=== PATIENT | female | born 1945 | race Caucasian/White ===

== ENCOUNTER 2021-04-20 03:54 | Emergency (ER) | payer MEDICARE, SELFPAY ==
--- NOTE | ~2021-04-20 | CT_ITS ---
EXAMINATION: CT abdomen pelvis wo con DATE: 04/20/2021 06:34 INDICATION: Left flank pain. TECHNIQUE: Computed tomography (CT) of the abdomen and pelvis was performed without intravenous contr ast. Automated exposure control and iterative reconstruction technique were employed. The dose-length product was 645.69 mGy-cm. COMPARISON: None. FINDINGS: The visualized portions of the lung bases demonstrate mild atelectasis and mild chronic mauricio g disease. No pleural effusion. The heart size is normal. No pericardial effusion. There is diffuse h epatic steatosis. The gallbladder, spleen, pancreas, adrenal glands, and left kidney are normal. Ther e is a 2 mm stone in right kidney. There are no dilated loops of bowel. The appendix is not visualize d. There is a small sliding hiatal hernia. There are no pathologically enlarged lymph nodes. There is no free intraperitoneal fluid. There is lumbar dextroscoliosis and severe spondylosis. IMPRESSION: 1. Small sliding hiatal hernia. 2. Diffuse hepatic steatosis. 3. 2 mm nonobstructing right kidney stone. Reviewed, dictated and finalized at location A.
[2021-04-20 04:03] VITALS: BP 141/72; PULSE 74; RESP 16; TEMP 36.8; O2SAT 94
[2021-04-20 06:00] LABS: Basophils Absolute Auto 0.1 K/mm3 (0.0-0.1); Basophils Percent Auto 0.7 % (0.2-1.2); Eosinophils Absolute Auto 0.3 K/mm3 (0-0.3); Eosinophils Percent Auto 3.6 % (0-4.4); Hemoglobin 12.8 g/dL (12.0-15.0); Immature Granulocyte Absolute 0.03 K/mm3 (0.00-0.031); Immature Granulocyte Percent A 0.4 % (0-0.5); Lymphocytes Absolute Auto 1.71 K/mm3 (0.9-3.2); Lymphocytes Percent Auto 21.3 % (18.3-44.2); Mean Corpuscular Hemoglobin 31.8 pg (26-34); Mean Corpuscular Volume 99.5 fl (80-100); Mean Platelet Volume 10.3 fl (7.4-10.4); Monocytes Absolute Auto 0.7 K/mm3 (0.1-0.6); Monocytes Percent Auto 9.2 % (2.6-8.5); Neutrophils Absolute Auto 5.2 K/mm3 (1.3-6.7); Neutrophils Percent Auto 64.8 % (45.5-73.1); Platelet Count Result 267 k/mm3 (150-375); Red Blood Count 4.02 M/mm3 (4.2-5.4); Red Cell Distribution Width 12.3 % (11.5-14.5)
[2021-04-20 06:05] VITALS: BP 142/67; PULSE 66; RESP 16; O2SAT 97
[2021-04-20 06:07] LABS: Alanine Aminotransferase 8 U/L (4-35); Albumin Level 3.9 g/dL (3.5-5.1); Alkaline Phosphatase 93 U/L (38-126); Anion Gap 8 mmol/L (8-16); Aspartate Amino Transferase 25 U/L (14-36); Blood Urea Nitrogen 19 mg/dL (7-17); Carbon Dioxide 26 mmol/L (22-30); Chloride 104 mmol/L (98-107); Estimated CRCL calculation 46 ml/min; Estimated Glomerular Filt Rate > 60; Glucose 95 mg/dL (65-105); Potassium 3.8 mmol/L (3.4-5.0); Sodium 138 mmol/L (137-145)
--- NOTE | 2021-04-20 06:30 | ED.GENADULT ---
HPI - General Adult General Chief complaint: Unspecified Stated complaint: left side pain Time Seen by Provider: 04/20/21 04:13 Source: patient and RN notes reviewed Mode of arrival: ambulatory Limitations: no limitations History of Present Illness HPI narrative: This is a 76 year old female with history of Parkinsons's who presents for evaluation left flank pain. She states starting yesterday she has been having intermittent left flank pain. This pain comes randomly. She thinks her pain feels better sitting up. She applied biofreeze , and this helped her pain. She denies associated nausea, vomiting, abdominal pain, urinary symptoms or fever. Her pain does not radiate. Related Data Home Medications Medication Instructions Recorded Confirmed aspirin 81 mg tablet,delayed 81 mg PO DAILY 10/16/19 11/08/20 release calcium carbonate 600 mg calcium 600 mg PO DAILY 10/16/19 11/08/20 (1,500 mg) tablet carbidopa 25 mg-levodopa 100 mg 1 tablet PO QID 10/16/19 11/08/20 tablet cholecalciferol (vitamin D3) 25 25 mcg PO DAILY 10/16/19 11/08/20 mcg (1,000 unit) capsule escitalopram oxalate 10 mg tablet 10 mg PO DAILY 10/16/19 11/08/20 melatonin 5 mg capsule mg PO .hs cap 10/16/19 11/08/20 multivitamin 1 tablet PO DAILY 10/16/19 11/08/20 anastrozole mg 04/20/21 bupropion HCl mg PO 04/20/21 Allergies Allergy/AdvReac Type Severity Reaction Status Date / Time celecoxib Allergy Mild Itching Verified 04/20/21 04:18 citalopram Allergy Mild Rash Verified 04/20/21 04:18 sertraline Allergy Mild made Verified 04/20/21 04:18 tremors worse primidone AdvReac Severe severe Verified 04/20/21 04:18 dizzy, gait unsteadiness Review of Systems Review of Systems: All systems reviewed & are unremarkable except as noted in HPI and below PMFSH Past Medical History Medical History (Updated 04/20/21 @ 06:55 by Aisha Delong MD) Hx of breast cancer Parkinson's Disease Thyroid nodule Family History Family History Sibling Family history of lung cancer, Onset Age: 61 Patient's sister is Patient's sister is in good health Family history of malignant neoplasm of ovary Mother Family history of lymphoma, Onset Age: 91 Father Patient's father is Social History Social History Smoking status: Never smoker Second hand tobacco smoke exposure: No Alcohol intake: never Substance use: never Gender identity (if verbalized by the patient): Female Sexual Orientation (if Verbalized by the Patient): Straight or Heterosexual Exam Narrative: Exam Narrative: GENERAL: Well-appearing, well-nourished, and in no acute distress. HEAD: Normocephalic, atraumatic EYES: EOMI, conjunctiva clear without discharge THROAT:Mucous membranes moist, Oropharynx normal without erythema, exudate, peritonsillar swelling or fluctuance NECK: Supple RESPIRATORY: No respiratory distress, Airway patent, Respirations non-labored, Clear to auscultation without rales, rhonchi or wheeze HEART: Regular rate and rhythm. No murmur heard. Normal peripheral pulses. ABDOMEN: Soft, nontender, nondistended, normal active bowel sounds. No masses. No rebound or guarding, No organomegaly. EXTREMITIES: No edema, normal strength with full range of motion. SKIN: right lower medial anterior leg with area with light pink , no induration, tenderness or fluctuance NEURO: Alert and oriented x3. CN 2-12 grossly intact. No focal deficits. PSYCH: Normal mood and affect. Course Reevaluation(s) Reevaluation #1: I Reviewed with patient labs and CT did not show any acute finding . This may be muscle spasm. I have discussed discharge plan and patient feels comfortable. She reports her pain feels better. Date: 04/20/21 Time: 06:53 Vital Signs Vital signs: Vital Signs Temperat
[2021-04-20 06:41] LABS: Add Urine Microscopic? YES; Appearance Urine Cloudy (Clear); Bacteria Urine Trace /hpf; Bilirubin Urine Negative (Negative); Blood Urine Negative (Negative); Color Urine Amber (Yellow); Glucose Urine UA Negative (Negative); Ketones Urine Trace mg/dL (Negative); Leukocyte Esterase Ur Negative LEU/UL (Negative); Mucus Urine Moderate /lpf; Nitrate Urine Negative (Negative); Protein Urine Negative (Negative); RBC Urine 0-2 /hpf (0-2); Specific Grav Ur 1.024 (1.001-1.035); Squamous Epithelial Cell Urine Many /hpf (Few)
[2021-04-20 06:55] VITALS: BP 148/78; PULSE 70; RESP 16; O2SAT 97
== END 2021-04-20 07:22 | disposition home or self-care (01) ==
PROVIDERS: Emergency Provider General Practice; PCP Internal Medicine
DX: R10.9 Unspecified abdominal pain (principal); G20 Parkinson's disease; Z79.82 Long term (current) use of aspirin; Z85.3 Personal history of malignant neoplasm of breast; K44.9 Diaphragmatic hernia without obstruction or gangrene; K76.0 Fatty (change of) liver, not elsewhere classified; N20.0 Calculus of kidney
CPT/HCPCS: 36415; 74176; 80053; 81001; 85025; 96365; 99284; J0131

== ENCOUNTER 2021-06-03 14:47 | Outpatient (CLI) | payer MEDICARE, SELFPAY ==
--- NOTE | ~2021-06-03 | US_ITS ---
EXAMINATION: US thyroid DATE: 06/03/2021 15:23 INDICATION: Nontoxic single thyroid nodule. TECHNIQUE: Multiple ultrasound images of the thyroid were obtained. COMPARISON: Ultrasound 09/09/2009 FINDINGS: The right thyroid lobe measures 3.6 x 1.8 x 1.7 cm. The left thyroid lobe measures 4.1 x 1.5 x 1.4 c m. In the right thyroid lobe, there is a 12 mm predominantly solid, hypoechoic, [id number]-[id number] nodu le with smooth margin without echogenic foci (TI-RADS TR4). In the left thyroid lobe, there is a 15 m m predominantly solid, hypoechoic, ryjre-qegw-gkmc nodule with ill-defined margin without echogenic f oci (TR4). There are multiple subcentimeter nodules in the thyroid. IMPRESSION: 1. Thyroid nodules, stable from 09/09/2009, likely not clinically significant. No follow-up is needed. Reviewed, dictated and finalized at location A. IMPRESSION: 1. Thyroid nodules, stable from 09/09/2009, likely not clinically significant. N o follow-up is needed.
== END 2021-06-03 14:48 | disposition home or self-care (01) ==
LOC: ANHIMG 14:54
PROVIDERS: PCP Internal Medicine; Visit Provider Internal Medicine
DX: E04.2 Nontoxic multinodular goiter (principal)
CPT/HCPCS: 76536

== ENCOUNTER 2021-07-06 08:38 | Emergency (ER) | payer MEDICARE, SELFPAY ==
[2021-07-06] VITALS (14 sets, daily range): BP systolic 108–120; BP diastolic 54–101; PULSE 74; RESP 8–32; TEMP 37; O2SAT 94–99
--- NOTE | ~2021-07-06 | XR_ITS ---
EXAMINATION: XR shoulder RT min 2V DATE: 07/06/2021 09:21 INDICATION: Right shoulder pain post fall TECHNIQUE: AP internally and externally rotated, AP oblique externally rotated and transscapular Y vi ews of the right shoulder were obtained. COMPARISON: None FINDINGS: Normal alignment. No fracture.Right glenohumeral osteoarthritis with moderate inferior predominant n onuniform joint space narrowing and with small marginal osteophytes. Mild right acromioclavicular ost eoarthritis. Moderate cervicothoracic spondylosis. Likely deep brain stimulators projecting over the left and right mid chest with leads extending cephalad to the visualized base of the left and right n lilia. Visualized portions of the lungs are clear. IMPRESSION: Moderate right glenohumeral and mild acromioclavicular osteoarthritis. No acute osseous abnormality. Reviewed, dictated and finalized at location A.
--- NOTE | ~2021-07-06 | XR_ITS ---
EXAMINATION: XR elbow RT min 3V DATE: 07/06/2021 09:21 INDICATION: Right elbow pain post fall TECHNIQUE: Anteroposterior, two oblique and lateral views of the right elbow were obtained. COMPARISON: None. FINDINGS: Alignment is normal. No fracture or joint effusion. Moderate osteoarthritis at the right elbow with r adiocapitellar predominance. Soft tissues are unremarkable. IMPRESSION: 1. Moderate right elbow osteoarthritis. No joint effusion or acute osseous abnormality. Reviewed, dictated and finalized at location A. IMPRESSION: 1. Moderate right elbow osteoarthritis. No joint effusion or acute osseous abno rmality.
--- NOTE | ~2021-07-06 | XR_ITS ---
EXAMINATION: XR knee RT min 4V DATE: 07/06/2021 09:21 INDICATION: Right knee pain post fall TECHNIQUE: Anteroposterior, 2 oblique and crosstable lateral views of the right knee were obtained COMPARISON: 02/26/2013 FINDINGS: Again seen is a right total knee arthroplasty with patellar resurfacing which appears to remain well seated in near-anatomic alignment. No periprosthetic lucency to suggest loosening. No fracture. Soft tissues are unremarkable. No right knee joint effusion. IMPRESSION: 1. No acute abnormality at a right total knee arthroplasty. Reviewed, dictated and finalized at location A.
--- NOTE | ~2021-07-06 | CT_ITS ---
EXAMINATION: CT brain wo con, CT cervical spine wo con EXAM DATE: 07/06/2021 09:24 INDICATION: Fall, hit head. Right temporal pain. TECHNIQUE: Spiral CT of the head was performed without contrast. Axial, coronal and sagittal images were reviewed. Spiral CT of the cervical spine was performed without contrast. Axial images were rev iewed. Coronal and sagittal reformatted images were also reviewed. The dose-length product (DLP) fo r this examination was 224.20 (accession [id number]), 605.33 (accession [id number]) mGy-cm. The exposure was tailored according to patient size, and iterative reconstruction (ASIR) was used as additional dose reduction technique. There is no prior study for comparison. FINDINGS: HEAD CT: There is been interval insertion of bilateral deep brain stimulator implants. There is no ac wilman intraparenchymal hemorrhage. No evidence of intraparenchymal brain mass lesion. No evidence of acute infarction. Please note that initial head CT has limited sensitivity for small or acute infarc tions. There is mild periventricular and subcortical hypodensity, nonspecific but probably related to small vessel ischemic disease. There is mild prominence of the sulci and ventricles related to cer ebral atrophy. There is intracranial carotid arteriosclerosis. There are no extra-axial collection s. There is no mass effect or midline shift. The orbits are unremarkable. Small to moderate-sized right frontal scalp contusion. The visualized sinuses and mastoid air cells are well aerated. CERVICAL CT: There is advanced left-sided cervical facet arthropathy and moderate disc disease at C5- 6. There is 2-3 mm degenerative anterolisthesis C4 on C5. There is no evidence of acute cervical frac ture. The odontoid process is intact. Pre-dens space is normal. Prevertebral soft tissue is normal . There are no soft tissue abnormalities identified. There is no disc space widening or traumatic v ertebral body subluxation suspected. A detailed level by level evaluation of spondylosis can be ad ded as addendum if requested. IMPRESSION: 1. No acute intracranial findings or cervical fracture. 2. Right frontal scalp contusion. 3. Age-related intracranial findings. 4. Cervical spondylosis. Reviewed, dictated and finalized at location A. IMPRESSION: 1. No acute intracranial findings or cervical fracture. 2. Right frontal scalp contusion. 3. Age-related intracranial findings. 4. Cervical spondylosis.
--- NOTE | 2021-07-06 08:58 | ED.FALL ---
HPI - Fall General Chief Complaint: Fall <DO Gisela Blanchard Last Filed: 07/06/21 11:31> Stated Complaint: Fall <Roberto Mejias DO - Last Filed: 07/06/21 11:31> Time Seen by Provider: 07/06/21 08:48 <Roberto Mejias DO - Last Filed: 07/06/21 11:31> Source: RN notes reviewed <Roberto Mejias DO - Last Filed: 07/06/21 11:31> History of Present Illness HPI Narrative: Patient presents emergency department from home for a fall. Patient states she was trying to carry a crockpot when she tripped and fell she states that she landed on her right side and notes pain and swelling to her right forehead as well as pain to her right shoulder her right elbow and her right knee. Patient does note small cut to her right elbow she denies any loss of consciousness she denies any vision changes, chest pain shortness of breath or any other symptoms <Roberto Mejias DO - Last Filed: 07/06/21 11:31> Related Data Home Medications: Home Medications Medication Instructions Recorded Confirmed aspirin 81 mg tablet,delayed 81 mg PO DAILY 10/16/19 05/18/21 release calcium carbonate 600 mg calcium 600 mg PO DAILY 10/16/19 05/18/21 (1,500 mg) tablet carbidopa 25 mg-levodopa 100 mg 1 tablet PO QID 10/16/19 05/18/21 tablet cholecalciferol (vitamin D3) 25 25 mcg PO DAILY 10/16/19 05/18/21 mcg (1,000 unit) capsule escitalopram oxalate 10 mg tablet 10 mg PO DAILY 10/16/19 05/18/21 melatonin 5 mg capsule mg PO .hs cap 10/16/19 05/18/21 multivitamin 1 tablet PO DAILY 10/16/19 05/18/21 anastrozole mg 04/20/21 bupropion HCl mg PO 04/20/21 05/18/21 <Roberto Mejias DO - Last Filed: 07/06/21 11:31> Allergies/Adverse Reactions: Allergies Allergy/AdvReac Type Severity Reaction Status Date / Time celecoxib Allergy Mild Itching Verified 05/16/21 10:21 citalopram Allergy Mild Rash Verified 05/16/21 10:21 sertraline Allergy Mild made Verified 05/16/21 10:21 tremors worse primidone AdvReac Severe severe Verified 05/16/21 10:21 dizzy, gait unsteadiness <Roberto Mejias DO - Last Filed: 07/06/21 11:31> Review of Systems Review of Systems: Gen.: Denies fevers or chills Eyes: Denies eye pain or visual change ENT: Denies congestion Respiratory: Denies shortness of breath or cough CV: Denies chest pain or palpitations GI: Denies abdominal pain nausea, emesis or diarrhea Musculoskeletal: See HPI Neuro: Denies numbness, tingling, weakness or focal weakness Skin: Small wound to right elbow Except as documented, all other systems reviewed and negative <Roberto Mejias DO - Last Filed: 07/06/21 11:31> [facility] Past Medical History Medical History: Medical History Hx of breast cancer Parkinson's Disease Thyroid nodule <Roberto Mejias DO - Last Filed: 07/06/21 11:31> Family History Family History: Family History Sibling Family history of lung cancer, Onset Age: 61 Patient's sister is Patient's sister is in good health Family history of malignant neoplasm of ovary Mother Family history of lymphoma, Onset Age: 91 Father Patient's father is <Roberto Mejias DO - Last Filed: 07/06/21 11:31> Social History Social History: Social History Smoking status: Never smoker Second hand tobacco smoke exposure: No Alcohol intake: never Substance use: never Gender identity (if verbalized by the patient): Female Sexual Orientation (if Verbalized by the Patient): Straight or Heterosexual <Roberto Mejias DO - Last Filed: 07/06/21 11:31> Exam Narrative: APPEARANCE: No acute distress, nontoxic, resting in bed EYES: EOMI, PERRL HEENT: Normocephalic, atraumatic, OMM RESPIRATORY: No respiratory distress Clear to auscu
[2021-07-06] MEDS: ACETAMINOPHEN 500 MG TABLET 1000 MG PO (09:35)
[2021-07-06] MEDS: TETANUS,DIPHTHERIA,AC PERTUSSIS ADULT (0.5 ML) BOOSTRIX IM (09:36)
--- NOTE | 2021-07-06 11:20 | PC.NURSE ---
Patient ambulated by RN around department. Reports she feels normal , denies any dizziness, steady gait. Able to walk around ED independently with RN standby. updated.
[2021-07-06] MEDS: LIDO 1%/EPINEPHRINE 1:100,000 20 ML VIAL INFILTRATE (11:28)
== END 2021-07-06 11:48 | disposition home or self-care (01) ==
PROVIDERS: Emergency Provider Emergency Medicine; PCP Internal Medicine
DX: S51.011A Laceration without foreign body of right elbow, initial encounter (principal); S00.83XA Contusion of other part of head, initial encounter; S40.011A Contusion of right shoulder, initial encounter; S80.01XA Contusion of right knee, initial encounter; Z23 Encounter for immunization; M19.011 Primary osteoarthritis, right shoulder; G20 Parkinson's disease; Z85.3 Personal history of malignant neoplasm of breast; M47.812 Spondylosis without myelopathy or radiculopathy, cervical region; W01.0XXA Fall on same level from slipping, tripping and stumbling without subsequent striking against object, initial encounter
CPT/HCPCS: 12001; 70450; 72125; 73030; 73080; 73564; 90471; 90715; 99284; A9270

== ENCOUNTER 2022-02-01 13:44 | Outpatient (RCR) | payer MEDICARE, SELFPAY ==
[2022-02-01 14:15] VITALS: BP 112/59; PULSE 72; TEMP 37.1; O2SAT 98
[2022-02-01] MEDS: ACETAMINOPHEN 325 MG TABLET 650 MG PO (14:17)
[2022-02-01] MEDS: diphenhydrAMINE HCl CAP 25 MG CAPSULE PO (14:17)
[2022-02-01] MEDS: FAMOTIDINE 20 MG TABLET PO (14:17)
[2022-02-01] MEDS: BEBTELOVIMAB 175 MG/2 ML VIAL IV PUSH (14:38)
[2022-02-01 15:22] VITALS: BP 118/58; PULSE 69; O2SAT 97
== END 2022-02-01 16:00 ==
LOC: AMCINF 13:44
PROVIDERS: PCP Internal Medicine; Referring Provider Internal Medicine; Visit Provider Internal Medicine Hematology & Oncology
DX: U07.1 COVID-19 (principal); G20 Parkinson's disease; Z85.3 Personal history of malignant neoplasm of breast
CPT/HCPCS: A9270; M0222; Q0222

== ENCOUNTER 2022-04-19 06:34 | Emergency (ER) | payer MEDICARE, SELFPAY ==
--- NOTE | ~2022-04-19 | XR_ITS ---
EXAMINATION: XR knee LT min 4V DATE: 04/19/2022 07:46 INDICATION: Left knee pain. Fall. TECHNIQUE: 4 views of left knee were obtained. COMPARISON: None. FINDINGS: There is varus angulation at the knee. No fracture. There is severe osteoarthritis of media l compartment and mild osteoarthritis of lateral and patellofemoral compartments. There is a small kn ee joint effusion. IMPRESSION: 1. Severe left knee osteoarthritis. 2. Small left knee joint effusion. Reviewed, dictated and finalized at location A.
[2022-04-19 06:35] VITALS: BP 110/87; PULSE 73; RESP 16; TEMP 35.9; O2SAT 97
[2022-04-19 07:21] VITALS: BP 105/65; PULSE 72; RESP 18; O2SAT 97
--- NOTE | 2022-04-19 09:03 | ED.FALL ---
HPI - Fall General Chief Complaint: Fall Stated Complaint: Fall Time Seen by Provider: 04/19/22 08:47 History of Present Illness HPI Narrative: 15-year-old female presents the emergency room for evaluation of left knee pain. Patient states last night she slipped and fell in the kitchen from a standing position reporting that her left knee twisted underneath her. Reports minimal pain and was able to ambulate following the injury last night. Reports waking up this morning with increased pain in her left knee, and difficulty ambulating. Patient denies any radiating pain. Denies taking any medications to alleviate her symptoms. Denies syncope or presyncope. Denies weakness or dizziness. Has a history of Parkinson's, remarks falls are common for her. Related Data Home Medications Medication Instructions Recorded Confirmed calcium carbonate 600 mg calcium 600 mg PO DAILY 10/16/19 03/23/22 (1,500 mg) tablet (Calcium) carbidopa 25 mg-levodopa 100 mg 1 tablet PO QID 10/16/19 03/23/22 tablet cholecalciferol (vitamin D3) 25 25 mcg PO DAILY 10/16/19 03/23/22 mcg (1,000 unit) capsule escitalopram oxalate 10 mg tablet 10 mg PO DAILY 10/16/19 03/23/22 melatonin 5 mg capsule 5 mg PO .hs 10/16/19 03/23/22 multivitamin (Multiple Vitamins 1 tablet PO DAILY 10/16/19 03/23/22 tablet) bupropion HCl 150 mg 24 hr tablet, 150 mg PO DAILY 04/20/21 03/23/22 extended release Allergies Allergy/AdvReac Type Severity Reaction Status Date / Time celecoxib Allergy Mild Itching Verified 04/19/22 06:39 citalopram Allergy Mild Rash Verified 04/19/22 06:39 sertraline Allergy Mild made Verified 04/19/22 06:39 tremors worse primidone AdvReac Severe severe Verified 04/19/22 06:39 dizzy, gait unsteadiness Review of Systems Review of Systems: CONSTITUTIONAL: Denies fever, chills, or sweats. EYES: Denies visual changes, redness, or discharge. ENT: Denies rhinorrhea, congestion, sore throat, or otalgia. CARDIOVASCULAR: Denies chest pain, palpitations, or edema. RESPIRATORY: Denies cough or dyspnea. GASTROINTESTINAL: Denies abdominal pain, nausea, vomiting, or diarrhea. GENITOURINARY: Denies dysuria or hematuria. SKIN: Denies rash or itching. MUSCULOSKELETAL: Reports left knee pain NEUROLOGIC: Denies headache, numbness, dizziness, or weakness. PSYCHIATRIC: Denies anxiety or depression. [facility] Past Medical History Medical History Hx of breast cancer Parkinson's Disease Thyroid nodule Family History Family History Sibling Family history of lung cancer, Onset Age: 61 Patient's sister is Patient's sister is in good health Family history of malignant neoplasm of ovary Depression Hypertension Mother Family history of lymphoma, Onset Age: 91 Father Patient's father is Hypertension Heart disease Social History Social History Second hand tobacco smoke exposure: No Alcohol intake: never Substance use: never Gender identity (if verbalized by the patient): Female Sexual Orientation (if Verbalized by the Patient): Straight or Heterosexual Exam Narrative: GENERAL: Well-appearing, well-nourished, no physical limitations, and in no acute distress. HEAD: Normocephalic, atraumatic. EYES: Conjunctivae normal, PERRLA and EOMI. CHEST: Clear to auscultation. No respiratory distress. No wheezes rales or rhonchi. No tenderness. HEART: Regular rate and rhythm. No murmur heard. Normal peripheral pulses. BACK: No CVA tenderness; No cervical/thoracic/lumbar tenderness, step-offs, bony abnormality; FROM EXTREMITIES: Left knee: Tenderness to the inferior medial side, no soft tissue swelling, no bony abnormality, no ecchymosis noted. No joint laxity, full range of motion, negative Sara's test. SKIN: W
== END 2022-04-19 09:21 | disposition home or self-care (01) ==
PROVIDERS: Emergency Provider Nurse Practitioner Family; PCP Internal Medicine
DX: M23.92 Unspecified internal derangement of left knee (principal); G20 Parkinson's disease; W01.0XXA Fall on same level from slipping, tripping and stumbling without subsequent striking against object, initial encounter
CPT/HCPCS: 73564; 99283

== ENCOUNTER 2022-05-15 14:18 | Outpatient (CLI) | payer MEDICARE, SELFPAY ==
--- NOTE | ~2022-05-15 | XR_ITS ---
EXAMINATION: XR knee RT 3V DATE: 05/15/2022 16:17 CDT INDICATION: Right knee pain TECHNIQUE: 2 views right knee FINDINGS: There is a right total knee arthroplasty in expected position. No fracture, subluxation or dislocation. Prosthesis is well seated. No significant joint effusion. IMPRESSION: 1. No acute fracture. Reviewed, dictated and finalized at location A. IMPRESSION: 1. No acute fracture.
--- NOTE | ~2022-05-15 | XR_ITS ---
XR femur RT min 2V DATE: 05/15/2022 14:43 INDICATION: Right leg pain. Multiple falls. Parkinson's. TECHNIQUE: AP and lateral views of right femur COMPARISON: 07/06/2021 right knee FINDINGS: Status post right total knee arthroplasty with patellar resurfacing. No fracture or dislocation, periosteal reaction or bone destruction of the right femur. IMPRESSION: Right total knee arthroplasty No fracture or dislocation of right femur Reviewed, dictated and finalized at location B.
--- NOTE | ~2022-05-15 | XR_ITS ---
XR tibia fibula RT 2V DATE: 05/15/2022 14:44 INDICATION: Right leg pain. Frequent falls. Parkinson's. TECHNIQUE: AP and lateral views COMPARISON: None FINDINGS: Osteopenia. Status post right total knee arthroplasty with patellar resurfacing. No fracture or dislocation, periosteal reaction or bone destruction of the tibia or fibula. Plantar calcaneal enthesopathy.. IMPRESSION: Osteopenia Status post right total knee arthroplasty Mild plantar calcaneal enthesopathy Reviewed, dictated and finalized at location B.
== END 2022-05-15 14:19 | disposition home or self-care (01) ==
PROVIDERS: PCP Internal Medicine; Visit Provider Internal Medicine
DX: M79.604 Pain in right leg (principal); M85.861 Other specified disorders of bone density and structure, right lower leg; Z96.651 Presence of right artificial knee joint; M77.31 Calcaneal spur, right foot
CPT/HCPCS: 73552; 73562; 73590

== ENCOUNTER 2022-06-23 12:17 | Emergency (ER) | payer MEDICARE, SELFPAY ==
--- NOTE | ~2022-06-23 | CT_ITS ---
EXAMINATION: CT cervical spine wo con DATE: 06/23/2022 13:43 INDICATION: Head injury. TECHNIQUE: Computed tomography (CT) of the cervical spine was performed without intravenous contrast. Automated exposure control and iterative reconstruction technique were employed. The dose-length pro duct was 164.32 mGy-cm. COMPARISON: CT cervical spine 07/06/2021 FINDINGS: Partially visualized are deep brain stimulators. There is 4 degrees dextrocurvature of cerv ical spine. There is 2 mm anterolisthesis of C4 on C5. Vertebral body heights are normal. There is mo derately decreased disc height at C3-C4, mildly decreased disc height at C4-C5, severely decreased di sc height at C5-C6, and mildly decreased disc height at C6-C7 and C7-T1. The following disc levels ar e specifically discussed: C2-C3: There is no uncovertebral joint osteoarthritis. There is ankylosis of the facet joints with mi ld hypertrophy. There is no neural foraminal stenosis. There is no central canal stenosis. C3-C4: There is moderate right and severe left uncovertebral joint osteoarthritis. There is severe bi lateral facet joint osteoarthritis. There is mild bilateral neural foraminal stenosis. There is mild central canal stenosis. C4-C5: There is mild bilateral uncovertebral joint osteoarthritis. There is severe bilateral facet antonina int osteoarthritis. There is mild bilateral neural foraminal stenosis. There is mild central canal st enosis. C5-C6: There is severe right and moderate left uncovertebral joint osteoarthritis. There is severe bi lateral facet joint osteoarthritis. There is mild bilateral neural foraminal stenosis. There is mild central canal stenosis. C6-C7: There is no uncovertebral joint osteoarthritis. There is severe bilateral facet joint osteoart hritis. There is mild left neural foraminal stenosis. There is mild central canal stenosis. C7-T1: There is no uncovertebral joint osteoarthritis. There is severe bilateral facet joint osteoart hritis. There is mild bilateral neural foraminal stenosis. There is no central canal stenosis. IMPRESSION: 1. No fracture. 2. Severe cervical spondylosis. Reviewed, dictated and finalized at location A.
--- NOTE | ~2022-06-23 | CT_ITS ---
EXAMINATION: CT brain wo con INDICATION: Head injury COMPARISON: 07/06/2021 TECHNIQUE: Standard unenhanced head CT. The dose-length product (DLP) was 605.33 mGy-cm. The mA was a djusted according to patient size. Iterative reconstruction technique was employed. FINDINGS: There is no acute intraparenchymal hemorrhage. No evidence of mass lesion. No evidence of a cute infarction. There is mild streak artifact from deep brain stimulator device. A posterior scalp h ematoma is noted. There is mild periventricular and subcortical hypodensity probably related to small vessel ischemic disease. There is mild prominence of the sulci and ventricles related to cerebral at rophy. Intracranial calcified cerebral atherosclerosis is noted. There are no extra-axial collections . There is no mass effect or midline shift. The orbits are unremarkable. There is moderate opacificat ion of the left sphenoid sinus. IMPRESSION: 1. No acute intracranial abnormality. 2. Age related findings. Reviewed, dictated and finalized at location B.
[2022-06-23 12:19] VITALS: BP 137/70; PULSE 73; RESP 16; TEMP 36.2; O2SAT 98
--- NOTE | 2022-06-23 13:22 | ED.FALL ---
HPI - Fall General Chief Complaint: Fall Stated Complaint: fall Time Seen by Provider: 06/23/22 13:22 History of Present Illness HPI Narrative: Patient is a 77-year-old female with a history of Parkinson's presenting after a fall. Patient states that she was walking across a parking lot when she fell back striking her head. Did not lose consciousness. States that she falls somewhat frequently due to her Parkinson's. States that she has a bruise on the back of her head but she denies other complaints. Denies headache or neck pain. No back pain. No vision changes, numbness, weakness. Denies further injury or complaints. Related Data Home Medications Medication Instructions Recorded Confirmed calcium carbonate 600 mg calcium 600 mg PO DAILY 10/16/19 03/23/22 (1,500 mg) tablet (Calcium) carbidopa 25 mg-levodopa 100 mg 1 tablet PO QID 10/16/19 03/23/22 tablet cholecalciferol (vitamin D3) 25 25 mcg PO DAILY 10/16/19 03/23/22 mcg (1,000 unit) capsule escitalopram oxalate 10 mg tablet 10 mg PO DAILY 10/16/19 03/23/22 melatonin 5 mg capsule 5 mg PO .hs 10/16/19 03/23/22 multivitamin (Multiple Vitamins 1 tablet PO DAILY 10/16/19 03/23/22 tablet) bupropion HCl 150 mg 24 hr tablet, 150 mg PO DAILY 04/20/21 03/23/22 extended release Allergies Allergy/AdvReac Type Severity Reaction Status Date / Time celecoxib Allergy Mild Itching Verified 04/19/22 06:39 citalopram Allergy Mild Rash Verified 04/19/22 06:39 sertraline Allergy Mild made Verified 04/19/22 06:39 tremors worse primidone AdvReac Severe severe Verified 04/19/22 06:39 dizzy, gait unsteadiness Review of Systems Review of Systems: All systems reviewed & are unremarkable except as noted in HPI and below PMFSH Past Medical History Medical History Hx of breast cancer Parkinson's Disease Thyroid nodule Family History Family History Sibling Family history of lung cancer, Onset Age: 61 Patient's sister is Patient's sister is in good health Family history of malignant neoplasm of ovary Depression Hypertension Mother Family history of lymphoma, Onset Age: 91 Father Patient's father is Hypertension Heart disease Social History Social History Second hand tobacco smoke exposure: No Alcohol intake: never Substance use: never Gender identity (if verbalized by the patient): Female Sexual Orientation (if Verbalized by the Patient): Straight or Heterosexual Exam Narrative: GENERAL: Well-appearing, well-nourished, and in no acute distress. HEAD: Normocephalic, atraumatic. EYES: PERRLA and EOMI. ENT: Nares clear, no rhinorrhea or epistaxis. Mucous membranes moist. NECK: Supple. CHEST: Clear to auscultation. No respiratory distress. HEART: Regular rate and rhythm. No murmur heard. Normal peripheral pulses. ABDOMEN: Soft, nontender, nondistended, normal active bowel sounds. EXTREMITIES: Normal range of motion. No edema. SKIN: Warm, dry, no rash. Ecchymosis to left occipital region, no lacerations or hematomas NEURO: No focal deficits. Alert and oriented x3. PSYCH: Normal mood and affect. Course Vital Signs Vital signs: Vital Signs Temperature 97.1 F L 06/23/22 12:19 Pulse Rate 73 06/23/22 12:19 Respiratory Rate 16 06/23/22 12:19 Blood Pressure 137/70 06/23/22 12:19 Pulse Oximetry 98 06/23/22 12:19 Oxygen Delivery Room Air 06/23/22 12:19 Temperature 97.1 F L 06/23/22 12:19 Pulse Rate 73 06/23/22 12:19 Respiratory Rate 16 06/23/22 12:19 Blood Pressure 137/70 06/23/22 12:19 Pulse Oximetry 98 06/23/22 12:19 Oxygen Delivery Room Air 06/23/22 12:19 MDM - Fall MDM Narrative Medical decision making narrative: Patient is a 77-year-old female with
== END 2022-06-23 14:42 | disposition home or self-care (01) ==
PROVIDERS: Emergency Provider Emergency Medicine; PCP Internal Medicine
DX: S00.03XA Contusion of scalp, initial encounter (principal); G20 Parkinson's disease; R29.6 Repeated falls; Z85.3 Personal history of malignant neoplasm of breast; W18.30XA Fall on same level, unspecified, initial encounter
CPT/HCPCS: 70450; 72125; 99284

== ENCOUNTER 2022-08-08 12:04 | Outpatient (CLI) | payer MEDICARE, SELFPAY ==
--- NOTE | ~2022-08-08 | XR_ITS ---
XR ribs LT 2V w CXR 2V DATE: 08/08/2022 12:35 INDICATION: Left anterior chest pain after repeated falls TECHNIQUE: PA and lateral chest. 3 views of the left ribs. COMPARISON: None FINDINGS: There are minimally displaced anterior left sixth, seventh and eighth rib fractures Osteopenia. Battery packs overlying both pectoral areas with leads extending cephalad into the lower cervical are a and beyond the upper margin of the radiographs. Borderline heart size. Aortic arch calcification. No hilar or mediastinal enlargement is evident. No pulmonary infiltrate or consolidation, pleural effusion or pulmonary vascular congestion or pneumo thorax is detected. Minimal thoracic scoliosis. Rotatory dextroscoliosis and multilevel degenerative disc disease of the lumbar spine. IMPRESSION: Minimally displaced anterior left sixth, seventh and eighth rib fractures Osteopenia Reviewed, dictated and finalized at location A. IMPRESSION: Minimally displaced anterior left sixth, seventh and eighth rib fra ctures Osteopenia
== END 2022-08-08 12:05 | disposition home or self-care (01) ==
PROVIDERS: PCP Internal Medicine; Visit Provider Physician Assistant
DX: R07.9 Chest pain, unspecified (principal); M85.88 Other specified disorders of bone density and structure, other site
CPT/HCPCS: 71046; 71100

== ENCOUNTER 2022-09-08 11:13 | Emergency (ER) | payer MEDICARE, SELFPAY ==
[2022-09-08 11:17] VITALS: BP 137/81; PULSE 67; RESP 18; TEMP 36.4; O2SAT 99
--- NOTE | 2022-09-08 12:13 | ED.FEMALEGU ---
HPI - Female Genitourinary General Chief complaint: Urogenital-Female Stated complaint: Patient reports she can't urinate Time Seen by Provider: 09/08/22 11:47 History of Present Illness HPI Narrative: 77-year-old female here for evaluation of complaints of urinary retention for the past 2 weeks. Patient states that she has been able to urinate her normal amount but she will have occasional episodes where she feels like she has to go to the bathroom but nothing will come out. She denies any burning, urgency or hematuria. She was treated for UTI 2 months ago but is unsure what symptoms she was having at that time. Presents to the ED because she has a history of Parkinson's and her neurologist recommended evaluation to rule out infection. No fevers, chills, acute back pain. Related Data Home Medications Medication Instructions Recorded Confirmed calcium carbonate 600 mg calcium 600 mg PO DAILY 10/16/19 08/08/22 (1,500 mg) tablet (Calcium) carbidopa 25 mg-levodopa 100 mg 1 tablet PO QID 10/16/19 08/08/22 tablet cholecalciferol (vitamin D3) 25 25 mcg PO DAILY 10/16/19 08/08/22 mcg (1,000 unit) capsule escitalopram oxalate 10 mg tablet 10 mg PO DAILY 10/16/19 08/08/22 melatonin 5 mg capsule 5 mg PO .hs 10/16/19 08/08/22 multivitamin (Multiple Vitamins 1 tablet PO DAILY 10/16/19 08/08/22 tablet) bupropion HCl 150 mg 24 hr tablet, 150 mg PO DAILY 04/20/21 08/08/22 extended release Allergies Allergy/AdvReac Type Severity Reaction Status Date / Time celecoxib Allergy Mild Itching Verified 09/08/22 11:14 citalopram Allergy Mild Rash Verified 09/08/22 11:14 sertraline Allergy Mild made Verified 09/08/22 11:14 tremors worse primidone AdvReac Severe severe Verified 09/08/22 11:14 dizzy, gait unsteadiness Review of Systems Review of Systems: Gen.: Denies fevers or chills Eyes: Denies eye pain or visual change ENT: Denies congestion Respiratory: Denies shortness of breath or cough CV: Denies chest pain or palpitations GI: Denies abdominal pain nausea, emesis or diarrhea reports retention. Denies burning, urgency, frequency or hematuria Musculoskeletal: Denies back pain or muscle pain Neuro: Denies numbness, tingling, weakness or focal weakness Skin: Denies rash Except as documented, all other systems reviewed and negative PMFSH Past Medical History Medical History Hx of breast cancer Parkinson's Disease Thyroid nodule Family History Family History Sibling Family history of lung cancer, Onset Age: 61 Patient's sister is Patient's sister is in good health Family history of malignant neoplasm of ovary Depression Hypertension Mother Family history of lymphoma, Onset Age: 91 Father Patient's father is Hypertension Heart disease Social History Social History Smoking status: Never smoker Second hand tobacco smoke exposure: No Alcohol intake: never Substance use: never Lack of Transportation: No Lack of Food: Never True Current Housing: I Have Housing Concerned About Future Housing: No Difficulty Paying Gas/Electric Bills: No Difficulty Paying for Meds: No Education: High School Diploma/GED Difficulty w/ Childcare or Family Care: No Gender identity (if verbalized by the patient): Female Sexual Orientation (if Verbalized by the Patient): Straight or Heterosexual Exam Narrative: APPEARANCE: Well appearing, no pain in distress, well-nourished. Head: Normocephalic and atraumatic. EYES: PERRLA/EOMI, conjunctivae clear NOSE: No nasal drainage EARS: External ear normal in appearance THROAT: Oropharynx is clear. Mucous membranes are moist. NECK: Supple. No adenopathy, no masses. RESPIRATORY: Airway patent, respirations nonlabo
[2022-09-08 13:33] LABS: Appearance Urine Slightly Cloudy (Clear); Bilirubin Urine Negative (Negative); Blood Urine Negative (Negative); Color Urine Yellow (Yellow); Glucose Urine UA Negative (Negative); Ketones Urine Negative (Negative); Leukocyte Esterase Ur Trace LEU/UL (Negative); Nitrate Urine Negative (Negative); Protein Urine Negative (Negative); Urobilinogen Urine 0.2 mg/dL (<2.0); pH Urine 5.5 (5.0-9.0)
[2022-09-08 13:43] LABS: Bacteria Urine Trace /hpf; Mucus Urine Moderate /lpf; RBC Urine 0-2 /hpf (0-2); Squamous Epithelial Cell Urine Few /hpf (Few)
[2022-09-08 13:44] LABS: Add Urine Microscopic? NO
[2022-09-08 14:19] LABS: Basophils Percent Auto 0.6 % (0.2-1.2); Eosinophils Absolute Auto 0.3 K/mm3 (0-0.3); Eosinophils Percent Auto 3.8 % (0-4.4); Hematocrit 36.5 % (37.0-47.0); Immature Granulocyte Absolute 0.02 K/mm3 (0.00-0.031); Immature Granulocyte Percent A 0.3 % (0-0.5); Lymphocytes Percent Auto 31.6 % (18.3-44.2); Mean Corpuscular HGB Conc 32.9 g/dl (32-36); Mean Corpuscular Hemoglobin 32.3 pg (26-34); Mean Corpuscular Volume 98.4 fl (80-100); Mean Platelet Volume 10.2 fl (7.4-10.4); Monocytes Absolute Auto 0.8 K/mm3 (0.1-0.6); Neutrophils Absolute Auto 3.4 K/mm3 (1.3-6.7); Neutrophils Percent Auto 51.7 % (45.5-73.1); Platelet Count Result 236 k/mm3 (150-375); Red Blood Count 3.71 M/mm3 (4.2-5.4); Red Cell Distribution Width 12.3 % (11.5-14.5); White Blood Count 6.6 K/mm3 (4.5-10.0)
[2022-09-08 14:22] LABS: Alanine Aminotransferase 12 U/L (6-35); Albumin Level 3.9 g/dL (3.5-5.1); Alkaline Phosphatase 76 U/L (38-126); Anion Gap 6 mmol/L (8-16); Aspartate Amino Transferase 29 U/L (14-36); Bilirubin,Total 0.8 mg/dL (0.2-1.3); Blood Urea Nitrogen 25 mg/dL (7-17); Calcium 9.1 mg/dL (8.4-10.2); Carbon Dioxide 26 mmol/L (22-30); Chloride 104 mmol/L (98-107); Estimated CRCL calculation 39 ml/min; Estimated Glomerular Filt Rate 53; Glucose 84 mg/dL (65-110); Potassium 3.6 mmol/L (3.4-5.0); Sodium 136 mmol/L (137-145)
[2022-09-08 14:39] VITALS: BP 126/87; PULSE 84; RESP 16; O2SAT 98
--- NOTE | 2022-09-08 14:40 | PC.NURSE ---
Pre void bladder scan was 310mL. Post void 43mL
== END 2022-09-08 14:52 | disposition home or self-care (01) ==
PROVIDERS: Emergency Provider Physician Assistant; PCP Internal Medicine
DX: R34 Anuria and oliguria (principal); Z85.3 Personal history of malignant neoplasm of breast; G20 Parkinson's disease
CPT/HCPCS: 36415; 80053; 81003; 85025; 99283

== ENCOUNTER 2022-10-25 16:49 | Emergency (ER) | payer MEDICARE, SELFPAY ==
--- NOTE | ~2022-10-25 | CT_ITS ---
EXAMINATION: CT brain wo con DATE: 10/25/2022 17:10 INDICATION: Head injury. Neck pain. TECHNIQUE: Computed tomography (CT) of the head was performed without intravenous contrast. The mA wa s adjusted according to patient size. Iterative reconstruction technique was employed. The dose-lengt h product was 605.33 mGy-cm. COMPARISON: Head CT 06/23/22 FINDINGS: Bilateral deep brain stimulators are noted. There is no intracranial hemorrhage, acute infa rction, or abnormal intracranial mass lesion. There are scattered areas of low attenuation in the cer ebral white matter. The ventricles are normal in size. The orbits are normal. There is mild mucosal t hickening in the paranasal sinuses. The mastoid air cells are normal. IMPRESSION: 1. Stable moderate nonspecific cerebral white matter disease, which likely represents chronic small v essel ischemic disease. Reviewed, dictated and finalized at location A. TH AID IMPRESSION: 1. Stable moderate nonspecific cerebral white matter disease, which likely repr esents chronic small vessel ischemic disease.
--- NOTE | ~2022-10-25 | CT_ITS ---
EXAMINATION: CT cervical spine wo con DATE: 10/25/2022 17:11 INDICATION: Head injury. Neck pain. TECHNIQUE: Computed tomography (CT) of the cervical spine was performed without intravenous contrast. Automated exposure control and iterative reconstruction technique were employed. The dose-length pro duct was 178.83 mGy-cm. COMPARISON: Neck CT 06/23/2022 FINDINGS: There is 4 degrees dextrocurvature of cervical spine. There is 2 mm anterolisthesis of C4 o n C5. Vertebral body heights are normal. There is moderately decreased disc height at C3-C4, mildly d ecreased disc height at C4-C5, severely decreased disc height at C5-C6, and mildly decreased disc hei ght at C6-C7 and C7-T1. The following disc levels are specifically discussed: C2-C3: There is no uncovertebral joint osteoarthritis. There is ankylosis of the facet joints with mi ld hypertrophy. There is no neural foraminal stenosis. There is no central canal stenosis. C3-C4: There is moderate right and severe left uncovertebral joint osteoarthritis. There is severe bi lateral facet joint osteoarthritis. There is mild bilateral neural foraminal stenosis. There is mild central canal stenosis. C4-C5: There is mild bilateral uncovertebral joint osteoarthritis. There is severe bilateral facet antonina int osteoarthritis. There is mild bilateral neural foraminal stenosis. There is mild central canal st enosis. C5-C6: There is severe right and moderate left uncovertebral joint osteoarthritis. There is severe bi lateral facet joint osteoarthritis. There is mild bilateral neural foraminal stenosis. There is mild central canal stenosis. C6-C7: There is no uncovertebral joint osteoarthritis. There is severe bilateral facet joint osteoart hritis. There is mild left neural foraminal stenosis. There is mild central canal stenosis. C7-T1: There is no uncovertebral joint osteoarthritis. There is severe bilateral facet joint osteoart hritis. There is mild bilateral neural foraminal stenosis. There is no central canal stenosis. IMPRESSION: 1. No fracture. 2. Severe cervical spondylosis. Reviewed, dictated and finalized at location A. CULTURE DIRECTOR
[2022-10-25 16:52] VITALS: BP 132/68; PULSE 78; RESP 16; TEMP 36.6; O2SAT 96
--- NOTE | 2022-10-25 17:45 | ED.GENADULT ---
HPI - General Adult General Chief complaint: Head Injury Stated complaint: head injury Time Seen by Provider: 10/25/22 17:26 Source: patient and family Mode of arrival: wheelchair Limitations: no limitations History of Present Illness HPI narrative: 77-year-old with a history of Parkinson's here with complaints of fall. Patient states at times she loses balance and falls. Patient states she fell earlier at home sustaining a laceration, no loss of consciousness. She denies any neck pain Onset (ago): hour(s) (4) Location: head Radiation: non-radiation Severity: mild Related Data Home Medications Medication Instructions Recorded Confirmed melatonin 5 mg capsule 5 mg PO .hs 10/16/19 08/08/22 multivitamin (Multiple Vitamins 1 tablet PO DAILY 10/16/19 08/08/22 tablet) bupropion HCl 300 mg 24 hr tablet, mg PO 10/25/22 extended release carbidopa 25 mg-levodopa 100 mg tablet 10/25/22 tablet escitalopram oxalate 20 mg tablet mg 10/25/22 lisinopril 20 mg tablet mg 10/25/22 metoprolol succinate 50 mg mg PO 10/25/22 tablet,extended release 24 hr rosuvastatin 10 mg tablet mg 10/25/22 Allergies Allergy/AdvReac Type Severity Reaction Status Date / Time celecoxib Allergy Mild Itching Verified 10/25/22 17:22 citalopram Allergy Mild Rash Verified 10/25/22 17:22 sertraline Allergy Mild made Verified 10/25/22 17:22 tremors worse primidone AdvReac Severe severe Verified 10/25/22 17:22 dizzy, gait unsteadiness Review of Systems Review of Systems: All systems reviewed & are unremarkable except as noted in HPI and below Constitutional: Constitutional: Reports no additional constitutional complaints Eyes: Eyes: Reports no additional eye complaints ENT: Reports system reviewed and no additional complaints, except as documented Cardiovascular: Cardiovascular: Reports no additional cardiovascular complaints Respiratory: Respiratory: Reports no additional respiratory complaints Gastrointestinal: Gastrointestinal: Reports no additional gastrointestinal complaints Musculoskeletal: Musculoskeletal: Reports no additional musculoskeletal complaints PMFSH Past Medical History Medical History Hx of breast cancer Parkinson's Disease Thyroid nodule Family History Family History Sibling Family history of lung cancer, Onset Age: 61 Patient's sister is Patient's sister is in good health Family history of malignant neoplasm of ovary Depression Hypertension Mother Family history of lymphoma, Onset Age: 91 Father Patient's father is Hypertension Heart disease Social History Social History Smoking status: Never smoker Second hand tobacco smoke exposure: No Alcohol intake: never Substance use: never Lack of Transportation: No Lack of Food: Never True Current Housing: I Have Housing Concerned About Future Housing: No Difficulty Paying Gas/Electric Bills: No Difficulty Paying for Meds: No Education: High School Diploma/GED Difficulty w/ Childcare or Family Care: No Gender identity (if verbalized by the patient): Female Sexual Orientation (if Verbalized by the Patient): Straight or Heterosexual Exam Narrative: GENERAL: Well-appearing, well-nourished, and in no acute distress. HEAD: Normocephalic, atraumatic. 3 cm laceration in the occipital area EYES: PERRLA and EOMI. ENT: Nares clear, no rhinorrhea or epistaxis. Mucous membranes moist. NECK: Supple. CHEST: Clear to auscultation. No respiratory distress. HEART: Regular rate and rhythm. No murmur heard. Normal peripheral pulses. ABDOMEN: Soft, nontender, nondistended, normal active bowel sounds. EXTREMITIES: Normal range of motion. No edema. SKIN: Warm, dry, no rash. NEURO: No focal deficits. Ela
[2022-10-25 18:30] VITALS: BP 132/107; PULSE 72; RESP 20; O2SAT 97
== END 2022-10-25 18:30 | disposition home or self-care (01) ==
LOC: ANHED 18:15
PROVIDERS: Emergency Provider Family Medicine; PCP Internal Medicine
DX: S01.01XA Laceration without foreign body of scalp, initial encounter (principal); G20 Parkinson's disease; Z85.3 Personal history of malignant neoplasm of breast; W19.XXXA Unspecified fall, initial encounter; Y92.009 Unspecified place in unspecified non-institutional (private) residence as the place of occurrence of the external cause
CPT/HCPCS: 12002; 70450; 72125; 99284

== ENCOUNTER 2022-11-02 13:51 | Emergency (ER) | payer MEDICARE, SELFPAY ==
--- NOTE | ~2022-11-02 | CT_ITS ---
EXAMINATION: CT brain wo con DATE: 11/02/2022 14:50 INDICATION: Head injury. TECHNIQUE: Computed tomography (CT) of the head was performed without intravenous contrast. The mA wa s adjusted according to patient size. Iterative reconstruction technique was employed. The dose-lengt h product was 605.33 mGy-cm. COMPARISON: Head CT 10/25/2022 FINDINGS: There are bilateral deep brain stimulators. There are scattered areas of low attenuation in the cerebral white matter. There is no intracranial hemorrhage, acute infarction, or abnormal intrac ranial mass lesion. There is a small old infarct in left cerebellum. The ventricles are normal in siz e. There is dependent fluid in the maxillary sinuses. There is mild mucosal thickening in the sphenoi d sinus. There are fractures of the nasal bones and nasal septum. The mastoid air cells are normal. T he orbits are normal. IMPRESSION: 1. Fractures of the nasal bones and nasal septum. 2. Small old infarct in left cerebellum. 3. Stable moderate nonspecific cerebral white matter disease, which likely represents chronic small v essel ischemic disease. Reviewed, dictated and finalized at location A. NEERING TEST SPECIALIST IMPRESSION: 1. Fractures of the nasal bones and nasal septum. 2. Small old infarct in left cerebellum. 3. Stable moderate nonspecific cerebral white matter disease, which likely repr esents chronic small vessel ischemic disease.
--- NOTE | ~2022-11-02 | CT_ITS ---
CT Facial Bones and Cervical Spine Clinical Indication: Trauma Technique: Contiguous axial scans were obtained through the facial bones and cervical spine followed by coronal and sagittal reconstructions. Dose reduction technique was used on this scan by utilizing automated exposure control and iterative reconstruction technique. The dose-length product (DLP) was 194.18 mGy-cm. Findings: CT facial bones: There are acute mildly displaced bilateral nasal bone fractures. There is also proba ble acute angulated fracture of the vomer. Small amount of probable blood products layering in the ma xillary sinuses. The remaining visualized paranasal sinuses are clear. Intraorbital soft tissues appe ar normal. CT cervical spine: No fractures or subluxation. There is uncovertebral degenerative change at C3-C4 and C5-C6. There are facet joint degenerative changes throughout the cervical spine, with fusion of t he bilateral C2-C3 facet joints. There is minimal grade 1 anterolisthesis of C4 over C5. No preverteb ral soft tissue swelling. Impression: Acute fractures of the bilateral nasal bones and vomer. Small amount of blood in the maxillary sinuses. No fracture of the cervical spine. Minimal grade 1 anterolisthesis of C4-C5. Degenerative changes of the cervical spine, as noted above. Reviewed, dictated and finalized at location . HT INSTRUCTOR Impression: Acute fractures of the bilateral nasal bones and vomer. Small amount of blood in the maxillary sinuses. No fracture of the cervical spine. Minimal grade 1 anterolisthesis of C4-C5. Degenerative changes of the cervical spine, as noted above.
[2022-11-02 13:52] VITALS: BP 152/79; PULSE 76; RESP 22; O2SAT 95
--- NOTE | 2022-11-02 14:22 | ED.FALL ---
HPI - Fall General Chief Complaint: Fall Stated Complaint: GLF Time Seen by Provider: 11/02/22 13:54 History of Present Illness HPI Narrative: 77-year-old female presents to the ER today via EMS for evaluation after having ground-level fall at home in the bedroom. She has a history of Parkinson's and falls frequently. Today she fell forward and hit her face on the floor. She has bruising and swelling across her nose. She has a small laceration to her nose and a small laceration to her left eyebrow and abrasions to her lips. She has a chipped front tooth. She says that she feels like her bite is off since the fall. She is able to talk and open and close her mouth normally. No headache. Denies any upper or lower extremity pain. She was able to ambulate with assistance after the fall and denies having any hip pain. No loss of consciousness. Related Data Home Medications Medication Instructions Recorded Confirmed melatonin 5 mg capsule 5 mg PO .hs 10/16/19 10/31/22 multivitamin (Multiple Vitamins 1 tablet PO DAILY 10/16/19 10/31/22 tablet) bupropion HCl 300 mg 24 hr tablet, mg PO 10/25/22 10/31/22 extended release carbidopa 25 mg-levodopa 100 mg tablet 10/25/22 10/31/22 tablet escitalopram oxalate 20 mg tablet mg 10/25/22 10/31/22 lisinopril 20 mg tablet mg 10/25/22 10/31/22 metoprolol succinate 50 mg mg PO 10/25/22 10/31/22 tablet,extended release 24 hr rosuvastatin 10 mg tablet mg 10/25/22 10/31/22 Allergies Allergy/AdvReac Type Severity Reaction Status Date / Time celecoxib Allergy Mild Itching Verified 10/31/22 11:26 citalopram Allergy Mild Rash Verified 10/31/22 11:26 sertraline Allergy Mild made Verified 10/31/22 11:26 tremors worse primidone AdvReac Severe severe Verified 10/31/22 11:26 dizzy, gait unsteadiness Review of Systems Review of Systems: CONSTITUTIONAL: Denies fever, chills, or sweats. EYES: Denies visual changes, redness, or discharge. CARDIOVASCULAR: Denies chest pain, palpitations, or edema. RESPIRATORY: Denies cough or dyspnea. GASTROINTESTINAL: Denies abdominal pain, nausea, vomiting, or diarrhea. GENITOURINARY: Denies dysuria or hematuria. SKIN: Denies rash or itching. MUSCULOSKELETAL: Denies back pain, joint pain, or myalgia. NEUROLOGIC: Denies headache, numbness, dizziness, or weakness. PSYCHIATRIC: Denies anxiety or depression. PMFSH Past Medical History Medical History Breast cancer Gastro-esophageal reflux disease without esophagitis Hx of breast cancer Parkinson's Disease Thyroid nodule Family History Family History Sibling Family history of lung cancer, Onset Age: 61 Patient's sister is Patient's sister is in good health Family history of malignant neoplasm of ovary Depression Hypertension Mother Family history of lymphoma, Onset Age: 91 Father Patient's father is Hypertension Heart disease Social History Social History Smoking status: Never smoker Second hand tobacco smoke exposure: No Alcohol intake: never Substance use: never Lack of Transportation: No Lack of Food: Never True Current Housing: I Have Housing Concerned About Future Housing: No Difficulty Paying Gas/Electric Bills: No Difficulty Paying for Meds: No Education: High School Diploma/GED Difficulty w/ Childcare or Family Care: No Gender identity (if verbalized by the patient): Female Sexual Orientation (if Verbalized by the Patient): Straight or Heterosexual Exam Narrative: GENERAL: Well-appearing, well-nourished, and in no acute distress. HEAD: facial bruising across nose and under eyes EYES: ZOE and EOMI. ENT: swelling to bridge of nose, chipped front tooth, no epistaxis NECK: Supple. No adenopathy or masses.
[2022-11-02 16:20] VITALS: BP 114/57; PULSE 72; RESP 18; O2SAT 99
[2022-11-02 17:28] VITALS: PULSE 73; RESP 18; O2SAT 100
[2022-11-02 17:31] VITALS: BP 140/59
== END 2022-11-02 17:47 | disposition home or self-care (01) ==
PROVIDERS: Emergency Provider Nurse Practitioner Family; PCP Internal Medicine
DX: S02.2XXA Fracture of nasal bones, initial encounter for closed fracture (principal); S01.112A Laceration without foreign body of left eyelid and periocular area, initial encounter; G20 Parkinson's disease; K21.9 Gastro-esophageal reflux disease without esophagitis; Z85.3 Personal history of malignant neoplasm of breast; W01.0XXA Fall on same level from slipping, tripping and stumbling without subsequent striking against object, initial encounter
CPT/HCPCS: 12011; 70450; 70486; 72125; 99284

== ENCOUNTER 2023-02-26 10:56 | Outpatient (CLI) | payer MEDICARE, SELFPAY ==
--- NOTE | ~2023-02-26 | XR_ITS ---
EXAMINATION: XR shoulder RT min 2V DATE: 02/26/2023 11:43 INDICATION: Right shoulder pain TECHNIQUE: AP internally and externally rotated, AP oblique externally rotated and transscapular Y vi ews of the right shoulder were obtained. COMPARISON: 07/06/2021 FINDINGS: Normal alignment. There is subtle linear lucency underlying the cortex of the rotator cuff footplate along the greater tuberosity with tiny focal cortical discontinuity adjacent minute calcific density suggesting a nondisplaced avulsion fracture. Moderate glenohumeral osteoarthritis and mild acromiocla vicular osteoarthritis. Soft tissues are unremarkable. Power supply is from plaque. Deep brain stimul ators project over the bilateral lower lungs. No focal airspace opacities, pulmonary edema, pleural e ffusion or pneumothorax. Heart size is normal. IMPRESSION: Small nondisplaced avulsion fracture involving the rotator cuff footplate along the greater tuberosit y. Reviewed, dictated and finalized at location A. IMPRESSION: Small nondisplaced avulsion fracture involving the rotator cuff footplate along the greater tuberosity.
--- NOTE | ~2023-02-26 | XR_ITS ---
EXAMINATION: XR forearm RT 2V, XR elbow RT 2V DATE: 02/26/2023 11:43 INDICATION: Right arm pain. Recurring falls. TECHNIQUE: 1. AP and lateral views of the right elbow were obtained. 2. AP an lateral views of the right forearm were obtained. COMPARISON: none FINDINGS: Normal alignment from the right elbow through the visualized right hand. No fracture. Polyarticular o steoarthritis, moderate to severe at the right first carpometacarpal joint, moderate severity at the radiocapitellar articulation of the right elbow and mild at the proximal radioulnar and ulnotrochlear compartments of the right elbow joint. Additional mild osteoarthritis at the triscaphe and first met acarpophalangeal joints. Soft tissues are unremarkable. No right elbow joint effusion. IMPRESSION: 1. 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 No acute osseous abnormality. Reviewed, dictated and finalized at location A. IMPRESSION: 1. 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 No acute oss eous abnormality.
== END 2023-02-26 10:57 | disposition home or self-care (01) ==
PROVIDERS: PCP Internal Medicine; Visit Provider Internal Medicine
DX: M79.601 Pain in right arm (principal); M19.021 Primary osteoarthritis, right elbow
CPT/HCPCS: 73030; 73070; 73090

== ENCOUNTER 2023-02-28 07:39 | Emergency (ER) | payer MEDICARE, SELFPAY ==
--- NOTE | ~2023-02-28 | XR_ITS ---
EXAMINATION: XR shoulder RT min 2V DATE: 02/28/2023 09:21 INDICATION: Right shoulder pain. Fall. TECHNIQUE: 4 views of right shoulder were obtained. COMPARISON: Right shoulder radiographs 07/06/2021, right shoulder radiographs 02/26/2023 FINDINGS: Bone alignment is normal. There is a possible fracture of anteroinferior glenoid. There is moderate osteoarthritis of glenohumeral joint and mild osteoarthritis of acromioclavicular joint. An electronic device overlies right chest. IMPRESSION: 1. Possible fracture of anteroinferior glenoid. Consider CT. 2. Polyarticular osteoarthritis. Reviewed, dictated and finalized at location A.
--- NOTE | ~2023-02-28 | CT_ITS ---
EXAMINATION: CT cervical spine wo con DATE: 02/28/2023 09:49 INDICATION: Neck injury. Fall. TECHNIQUE: Computed tomography (CT) of the cervical spine was performed without intravenous contrast. Automated exposure control and iterative reconstruction technique were employed. The dose-length pro duct was 112.99 mGy-cm. COMPARISON: CT cervical spine 11/02/2022 FINDINGS: There is 2 mm anterolisthesis of C4 on C5. There is 7 degrees dextrocurvature of cervical s pine. Vertebral body heights are normal. There is severely decreased disc height at C3-C4, mildly dec reased disc height at C4-C5, and severely decreased disc height at C5-C6. The following disc levels a re specifically discussed: C2-C3: There is no uncovertebral joint osteoarthritis. There is ankylosis of the facet joints with mo derate left hypertrophy. There is mild left neural foraminal stenosis. There is no central canal sten osis. C3-C4: There is moderate right and severe left uncovertebral joint osteoarthritis. There is severe bi lateral facet joint osteoarthritis. There is mild bilateral neural foraminal stenosis. There is mild central canal stenosis. C4-C5: There is no uncovertebral joint osteoarthritis. There is severe bilateral facet joint osteoart hritis. There is mild left neural foraminal stenosis. There is no central canal stenosis. C5-C6: There is severe bilateral uncovertebral joint osteoarthritis. There is severe bilateral facet joint osteoarthritis. There is mild bilateral neural foraminal stenosis. There is mild central canal stenosis. C6-C7: There is no uncovertebral joint osteoarthritis. There is severe bilateral facet joint osteoart hritis. There is mild left neural foraminal stenosis. There is mild central canal stenosis. C7-T1: There is no uncovertebral joint osteoarthritis. There is severe bilateral facet joint osteoart hritis. There is mild bilateral neural foraminal stenosis. There is no central canal stenosis. IMPRESSION: 1. No fracture. 2. Severe cervical spondylosis. Reviewed, dictated and finalized at location A.
--- NOTE | ~2023-02-28 | XR_ITS ---
EXAMINATION: XR humerus RT DATE: 02/28/2023 09:21 INDICATION: Right upper arm pain. Fall. TECHNIQUE: 2 views of right humerus were obtained. COMPARISON: None. FINDINGS: Bone alignment is normal. No fracture. There is mild osteoarthritis of glenohumeral joint, acromioclavicular joint, and the elbow joint. An electronic device overlies right chest. IMPRESSION: 1. Polyarticular osteoarthritis. Reviewed, dictated and finalized at location A.
--- NOTE | ~2023-02-28 | CT_ITS ---
EXAMINATION: CT brain wo con DATE: 02/28/2023 09:49 INDICATION: Fall. TECHNIQUE: Computed tomography (CT) of the head was performed without intravenous contrast. The mA wa s adjusted according to patient size. Iterative reconstruction technique was employed. The dose-lengt h product was 605.33 mGy-cm. COMPARISON: Head CT 11/02/2022 FINDINGS: There are bilateral deep brain stimulators. There are scattered areas of low attenuation in the cerebral white matter. There is no intracranial hemorrhage, acute infarction, or abnormal intrac ranial mass lesion. The ventricles are normal in size. There is mild mucosal thickening in sphenoid s inus. The mastoid air cells are normal. IMPRESSION: 1. Stable moderate nonspecific cerebral white matter disease, which likely represents chronic small v essel ischemic disease. 2. Bilateral deep brain stimulators. Reviewed, dictated and finalized at location A. IMPRESSION: 1. Stable moderate nonspecific cerebral white matter disease, which likely repr esents chronic small vessel ischemic disease. 2. Bilateral deep brain stimulators.
[2023-02-28 07:42] VITALS: BP 146/66; PULSE 83; RESP 18; TEMP 36.3; O2SAT 97
--- NOTE | 2023-02-28 09:22 | ED.EXTPRO ---
HPI - Extremity Problem General Chief complaint: Extremity Problem,Nontraumatic <Saida Serrato PA-C - Last Filed: 02/28/23 18:59> Stated complaint: R shoulder pain, sent by Dr. Roblero <Saida Serrato PA-C - Last Filed: 02/28/23 18:59> Time Seen by Provider: 02/28/23 09:04 <Saida Serrato PA-C - Last Filed: 02/28/23 18:59> History of Present Illness HPI Narrative: 77-year-old female with a history of Parkinson's disease reports for evaluation of right shoulder and arm pain after a fall that occurred 4 days ago. Patient states she was using her walker in her kitchen with 1 hand on her walker, she was using the other hand to water plants became unstable due to not having both hands on the walker and fell. States she fell on her right shoulder has had pain since. States her PCP Dr. Roblero ordered x-rays. Patient had x-rays taken on 02/26 revealed a small nondisplaced avulsion fracture involving the rotator cuff footplate along the greater tuberosity. Patient states she went to her regular physical therapy appointment yesterday who advised her to come to the ED. She reports taking ibuprofen for pain. She is unsure if she hit her head during the fall but did report a sore spot on her right parietal scalp after the fall which has since resolved. Denies prodromal symptoms prior to fall including chest pain, focal numbness or weakness, shortness of breath, vision changes. States she has been falling more recently and is currently using a wheelchair at home since the most recent fall. <Saida Serrato PA-C - Last Filed: 02/28/23 18:59> Related Data Home medications: Home Medications Medication Instructions Recorded Confirmed melatonin 5 mg capsule 5 mg PO .hs 10/16/19 01/31/23 multivitamin (Multiple Vitamins 1 tablet PO DAILY 10/16/19 01/31/23 tablet) bupropion HCl 300 mg 24 hr tablet, mg PO 10/25/22 01/31/23 extended release carbidopa 25 mg-levodopa 100 mg tablet 10/25/22 01/31/23 tablet escitalopram oxalate 20 mg tablet mg 10/25/22 01/31/23 metoprolol succinate 50 mg mg PO 10/25/22 01/31/23 tablet,extended release 24 hr rosuvastatin 10 mg tablet mg 10/25/22 01/31/23 lisinopril 20 mg tablet 10 mg PO 01/23/23 01/31/23 <Saida Serrato PA-C - Last Filed: 02/28/23 18:59> Allergies/Adverse reactions: Allergies Allergy/AdvReac Type Severity Reaction Status Date / Time celecoxib Allergy Mild Itching Verified 01/23/23 13:02 citalopram Allergy Mild Rash Verified 01/23/23 13:02 sertraline Allergy Mild made Verified 01/23/23 13:02 tremors worse primidone AdvReac Severe severe Verified 01/23/23 13:02 dizzy, gait unsteadiness <Saida Serrato PA-C - Last Filed: 02/28/23 18:59> Review of Systems Review of Systems: CONSTITUTIONAL: Denies fever, chills EYES: Denies visual changes, redness, or discharge. ENT: Denies rhinorrhea, congestion, sore throat, or otalgia. CARDIOVASCULAR: Denies chest pain, palpitations, or edema. RESPIRATORY: Denies cough or dyspnea. GASTROINTESTINAL: Denies abdominal pain, nausea, vomiting, or diarrhea. GENITOURINARY: Denies dysuria or hematuria. SKIN: Denies rash or itching. MUSCULOSKELETAL: See HPI NEUROLOGIC: Denies headache, numbness, dizziness, or weakness. PSYCHIATRIC: Denies anxiety or depression. <Saida Serrato PA-C - Last Filed: 02/28/23 18:59> [facility] Past Medical History Medical History: Medical History Breast cancer Gastro-esophageal reflux disease without esophagitis Hx of breast cancer Parkinson's Disease Thyroid nodule <Saida Serrato PA-C - Last Filed: 02/28/23 18:59> Family History Family History: Family History Sibling Family history of lung cancer, Onset Age: 61 Patient's sister is Patient's sister is in good health Family history of malign
[2023-02-28] MEDS: ACETAMINOPHEN 500 MG TABLET 1000 MG PO (09:40)
[2023-02-28 10:19] VITALS: BP 129/80; PULSE 78; RESP 12; O2SAT 97
[2023-02-28 11:24] VITALS: BP 124/80; PULSE 80; RESP 16; TEMP 36.8; O2SAT 98
== END 2023-02-28 11:33 | disposition home or self-care (01) ==
PROVIDERS: Emergency Provider Physician Assistant; PCP Internal Medicine
DX: S42.91XA Fracture of right shoulder girdle, part unspecified, initial encounter for closed fracture (principal); G20 Parkinson's disease; K21.9 Gastro-esophageal reflux disease without esophagitis; Z85.3 Personal history of malignant neoplasm of breast; M19.011 Primary osteoarthritis, right shoulder; W18.39XA Other fall on same level, initial encounter
CPT/HCPCS: 70450; 72125; 73030; 73060; 99284; A4565; A9270

== ENCOUNTER 2023-08-17 13:57 | Inpatient (IN) | payer MEDICARE, SELFPAY ==
[2023-08-17] VITALS (10 sets, daily range): BP systolic 145–168; BP diastolic 70–103; PULSE 72–98; RESP 15–25; TEMP 36.4–36.6; O2SAT 95–99; BMI 25.5
--- NOTE | ~2023-08-17 | XR_ITS ---
EXAMINATION: XR hip LT min 3V w AP pelvis DATE: 08/17/2023 14:53 INDICATION: Left hip pain. Fall. TECHNIQUE: An anteroposterior view of the pelvis and 3 views of left hip were obtained. COMPARISON: None. FINDINGS: There is lumbar dextroscoliosis and severe spondylosis. No fracture. Osteitis pubis is note d. There is mild osteoarthritis of the hips. IMPRESSION: 1. Mild osteoarthritis of the hips. Reviewed, dictated and finalized at location E. [employer]
--- NOTE | ~2023-08-17 | XR_ITS ---
EXAMINATION: XR shoulder LT min 2V DATE: 08/17/2023 15:47 INDICATION: Left shoulder dislocation status post reduction. TECHNIQUE: 2 views of left shoulder were obtained. COMPARISON: Left shoulder radiographs at 2:40 PM FINDINGS: Bone alignment is normal. There is a nondisplaced comminuted fracture of greater trochanter of proximal humerus. There is moderate osteoarthritis of glenohumeral joint and mild osteoarthritis of acromioclavicular joint. An electronic device overlies left chest. IMPRESSION: 1. Fracture of greater trochanter of proximal left humerus. 2. Polyarticular osteoarthritis. Reviewed, dictated and finalized at location E. [employer]
--- NOTE | ~2023-08-17 | XR_ITS ---
EXAMINATION: XR shoulder LT min 2V, XR humerus LT DATE: 08/17/2023 14:54 INDICATION: Left shoulder and arm pain and decreased range of motion post fall TECHNIQUE: 1. AP and transscapular Y views of the left shoulder were obtained. 2. AP and lateral views of the left humerus were obtained. COMPARISON: None FINDINGS: There is anterior dislocation of the left glenohumeral joint. Small mildly displaced fracture fragmen t at the posterior inferior aspect of the humeral head which could represent a Hill-Sachs fracture or potentially an avulsion fracture of the footplate of the teres minor tendon. There also is a small m inimally displaced fracture fragment along the posterior inferior rim of the glenoid and indistinct c ortical contour along the inferior rim of the glenoid represent additional impaction fracture. Mild l eft acromioclavicular osteoarthritis. Normal alignment at the left elbow on the frontal projection. T here is poor visualization of the along the lateral projection due to underpenetration with the arm i lizabeth in the patient's side. There is severe osteoarthritis at the radiocapitellar articulation of th e elbow. Mild partial supply for a likely deep brain stimulation injection of the left pectoral regio n with leads extending cephalad along the left neck. IMPRESSION: 1. Anterior left glenohumeral dislocation. 2. Small fractures as detailed above along the inferior glenoid and posterior inferior aspect of the left femoral head. 2. Severe left radiocapitellar osteoarthritis. No acute osseous abnormality identified at the left el bow although assessment is limited by the absence of a diagnostic lateral projection. If there is spe cific clinical concern for left elbow injury would recommend continued elbow radiographs for further evaluation. Reviewed, dictated and finalized at location A. CLINICAL DOCUMENTATION IMPRESSION: 1. Anterior left glenohumeral dislocation. 2. Small fractures as detailed above along the inferior glenoid and posterior i nferior aspect of the left femoral head. 2. Severe left radiocapitellar osteoarthritis. No acute osseous abnormality sukhjinder ntified at the left elbow although assessment is limited by the absence of a di agnostic lateral projection. If there is specific clinical concern for left elb ow injury would recommend continued elbow radiographs for further evaluation.
--- NOTE | ~2023-08-17 | CT_ITS ---
EXAMINATION: CT cervical spine wo con DATE: 08/17/2023 14:33 INDICATION: Head injury post fall TECHNIQUE: Computed tomography (CT) of the cervical spine was performed without intravenous contrast. Automated exposure control and iterative reconstruction technique were employed. The dose-length pro duct was 166.40 mGy-cm. COMPARISON: 02/28/2023 FINDINGS: 7 degrees cervical dextrocurvature. 1 mm anterolisthesis C4 on C5 and C7 on T1. Vertebral body height s are normal. No fracture. Moderate to severe left-sided predominant disc height loss at C5-C6 with a ssociated degenerative endplate changes and severe bilateral uncovertebral osteoarthritis. Moderate d isc height loss at C3-C4 and mild disc height loss at C4-C5. There is mild central canal stenosis at C3-C4 and C5-C6. There is osseous fusion across the bilateral C2-C3 facet joints. There is multilevel severe left-sided and mild to moderate right-sided facet osteoarthritis. There is mild neural forami nal stenosis at a few levels on both the left and right sides of the cervical spine. See prior cervic al spine CT report for level by level analysis. Partially lesions in the posterior cervical soft tiss ues extending to the bilateral deep brain stimulators atherosclerotic calcifications at the bilateral carotid bulbs. Cervical soft tissues are otherwise unremarkable. Visualized apices of lungs are mandie r. IMPRESSION: 1. Mild cervical dextrocurvature with severe spondylosis. No acute osseous abnormality. Reviewed, dictated and finalized at location A. ER STRAIGHTENED IMPRESSION: 1. Mild cervical dextrocurvature with severe spondylosis. No acute osseous abno rmality.
--- NOTE | ~2023-08-17 | CT_ITS ---
EXAMINATION: CT brain wo con INDICATION: Head injury COMPARISON: 02/28/2023 TECHNIQUE: Standard unenhanced head CT. The dose-length product (DLP) was 681.00 mGy-cm. The mA was a djusted according to patient size. Iterative reconstruction technique was employed. FINDINGS: No acute intraparenchymal hemorrhage. No evidence of mass lesion. No evidence of acute infa rction. There is mild periventricular and subcortical hypodensity probably related to small vessel is chemic disease. There is mild prominence of the sulci and ventricles related to cerebral atrophy. Int racranial calcified cerebral atherosclerosis is noted. No extra-axial collections. No mass effect or midline shift. The orbits and soft tissues are unremarkable. The visualized sinuses and mastoid air c ells are well aerated. Bilateral deep brain stimulators are again noted. IMPRESSION: 1. No acute intracranial abnormality. 2. Age related findings. Reviewed, dictated and finalized at location B. [employer]ER
[2023-08-17] MEDS: PROPOFOL IV EMULSION 200 MG/20 ML VIAL 70 MG IV PUSH (15:34)
[2023-08-17] MEDS: fentaNYL CITRATE INJ (*CRX) 100 MCG/2 ML VIAL 35 MCG IV PUSH (15:34)
--- NOTE | 2023-08-17 15:45 | ED.FALL ---
HPI - Fall General Chief Complaint: Fall Stated Complaint: fall shoulder injury Time Seen by Provider: 08/17/23 14:06 History of Present Illness HPI Narrative: Patient history of Parkinson's disease and falls frequently, she fell again today, landed on her left side, has some pain to her left hip and thinks that she did dislocate her left shoulder. She did also fall and hit her head yesterday. No focal numbness or weakness Related Data Home Medications Medication Instructions Recorded Confirmed melatonin 5 mg capsule 5 mg PO .hs 10/16/19 04/18/23 multivitamin (Multiple Vitamins 1 tablet PO DAILY 10/16/19 04/18/23 tablet) bupropion HCl 300 mg 24 hr tablet, mg PO 10/25/22 04/18/23 extended release carbidopa 25 mg-levodopa 100 mg tablet 10/25/22 04/18/23 tablet escitalopram oxalate 20 mg tablet mg 10/25/22 04/18/23 rosuvastatin 10 mg tablet mg 10/25/22 04/18/23 Allergies Allergy/AdvReac Type Severity Reaction Status Date / Time celecoxib Allergy Mild Itching Verified 04/18/23 13:30 citalopram Allergy Mild Rash Verified 04/18/23 13:30 sertraline Allergy Mild made Verified 04/18/23 13:30 tremors worse primidone AdvReac Severe severe Verified 04/18/23 13:30 dizzy, gait unsteadiness Review of Systems Review of Systems: All systems reviewed & are unremarkable except as noted in HPI and below PMFSH Past Medical History Medical History Breast cancer Gastro-esophageal reflux disease without esophagitis Hx of breast cancer Parkinson's Disease Thyroid nodule Family History Family History Sibling Family history of lung cancer, Onset Age: 61 Patient's sister is Patient's sister is in good health Family history of malignant neoplasm of ovary Depression Hypertension Mother Family history of lymphoma, Onset Age: 91 Father Patient's father is Hypertension Heart disease Social History Social History Smoking status: Never smoker Second hand tobacco smoke exposure: No Alcohol intake: never Substance use: never Lack of Transportation: No Lack of Food: Never True Current Housing: Decline to Answer Concerned About Future Housing: Decline to Answer Difficulty Paying Gas/Electric Bills: Decline to Answer Difficulty Paying for Meds: Decline to Answer Currently Unemployed: Decline to Answer Education: Decline to Answer Difficulty w/ Childcare or Family Care: Decline to Answer Gender identity (if verbalized by the patient): Female Sexual Orientation (if Verbalized by the Patient): Straight or Heterosexual Exam Narrative: EXAMINATION OF ORGAN SYSTEMS/BODY AREAS: Constitutional: Vital signs per nursing GENERAL:[No acute distress, non-toxic appearing.] HEAD: Normal with no signs of head trauma. EYES: EOMI, conjunctiva normal ENT: Hearing grossly intact LUNGS: Nonlabored breathing. HEART: [Regular rate and rhythm] ABD: [Soft], [nontender to palpation] EXT: Tender/squared off left shoulder; minimal tenderness to palpation left hip, no tenderness to palpation to any other joint. Normal radial pulse. SKIN: [No rashes or lesions.] NEURO: [Alert and oriented x 3. No gross focal sensory or strength deficits.] PSYCH: Normal affect Course Vital Signs Vital signs: Vital Signs Temperature 97.5 F L 08/17/23 14:01 Pulse Rate 98 08/17/23 14:01 Respiratory Rate 16 08/17/23 14:01 Blood Pressure 145/103 H 08/17/23 14:01 Pulse Oximetry 98 08/17/23 14:01 Temperature 97.5 F L 08/17/23 14:01 Pulse Rate 92 08/17/23 16:10 Respiratory Rate 18 08/17/23 16:10 Blood Pressure 151/84 H 08/17/23 16:10 Pulse Oximetry 99 08/17/23 16:10 Oxygen Delivery Room Air 08/17/23 16:10 Oxygen Flow Rate 2 08/17/23 15:40 Proce
--- NOTE | 2023-08-17 16:57 | PCCCNOTE ---
Pt. has a history of Parkinson's disease, and has been having frequent falls. Today she fell and dislocated her left shoulder. Pt. uses a walker for ambulating and is unable to use it at this time. Pt was sedated today for an orthopedic joint reduction, and now has an immobilizer on her left arm. Ortho consult is in for her to be seen, along with a PT/OT evaluation. I spoke with Joyce at [facility], who is aware of the patient and waiting for PT to evaluate, then hopeful for patient to go to [facility] tomorrow. Pt. was given the choice of acute rehabilitation centers and chose [facility] and the preference form is signed.
--- NOTE | 2023-08-17 17:29 | PM.IMHP ---
H&P: HPI History of Present Illness Date/Time: 08/17/23 17:30 Chief Complaint: Left hip and shoulder pain after fall. Narrative: This is a very pleasant 78-year-old female with Parkinson's, hypertension, and hyperlipidemia who presented to the emergency department for evaluation of left hip and shoulder pain after a fall. The patient provides the following history. She has an unsteady gait related to her Parkinson's and typically gets around with a walker although at time she uses a wheelchair. It is not necessarily unusual for her to have a fall here and there although she has fallen 4 times in the last couple of days. Today she was getting something out of the refrigerator and when she turned around she lost her balance, possibly on a wet spot on the floor, and she fell onto her left side with immediate pain in the left shoulder and left hip. She denies head trauma and loss of consciousness in the fall however she does have bruising on the left side of her head on exam which she states was from a fall the other day. With further questioning she does admit that at times she does not remember how or why she fell although she does not think she has lost consciousness. Imaging today showed an anterior left glenohumeral and a fracture of the greater trochanter of the proximal left humerus. This was reduced and placed in a sling. Other imaging for without acute findings. She is being admitted in this setting for pain management, orthopedic consultation, and PT/OT evaluation as she may very well need rehab prior to returning home. She denies syncope, near syncope, lightheadedness, dizziness, chest pain, shortness of breath, neck pain, chest pain, abdominal pain, nausea, vomiting, and sensation changes distal to the fracture. Review of Systems Review of Systems: Twelve systems were reviewed and are negative except for as per HPI. [facility] Past Medical History Medical History (Updated 08/17/23 @ 21:54 by Stephany Gomez PA-C) Breast cancer Gastro-esophageal reflux disease without esophagitis Hypertension Parkinson's Disease Thyroid nodule Surgical History Surgical History (Updated 08/17/23 @ 21:43 by Stephany Gomez PA-C) History of arthroplasty of right knee History of arthroscopic knee surgery History of bladder suspension procedure History of breast biopsy History of dilation and curettage History of hysterectomy Family History Family History Sibling Family history of lung cancer, Onset Age: 61 Patient's sister is Patient's sister is in good health Family history of malignant neoplasm of ovary Depression Hypertension Mother Family history of lymphoma, Onset Age: 91 Father Patient's father is Hypertension Heart disease Social History Social History (Updated 08/17/23 @ 21:43 by Stephany Gomez PA-C) Social History: Surrogate medical decision maker: Divina Easton, daughter. Code status: Full code. Smoking status: Never smoker Second hand tobacco smoke exposure: No Alcohol intake: never Substance use: never Lack of Transportation: No Lack of Food: Never True Current Housing: I Have Housing Concerned About Future Housing: No Difficulty Paying Gas/Electric Bills: No Difficulty Paying for Meds: No Currently Unemployed: No Education: High School Diploma/GED Difficulty w/ Childcare or Family Care: No Spiritual care concerns: No Meds Home Medications and Allergies Home Medications Medication Instructions Recorded Confirmed Type melatonin 5 mg capsule 5 mg PO .hs 10/16/19 08/17/23 History multivitamin (Multiple Vitamins 1 tablet PO DAILY 10/16/19 08/17/23 History tablet) bupropion HCl 300 mg 24 hr tablet, 300 mg PO DAILY 10/25/22 08/17/23 History extended release carbidopa 25 mg-levodopa 100 mg 0.5 tablet PO BID 10/25/22 08/17/23 History tablet escitalopram ox
--- NOTE | 2023-08-17 20:47 | ADMGEN ---
This patient, Lorraine Leigh, was admitted to Medical Room 348-01. Patient/family oriented to hospital policies and general routines including ID bracelet, bed and alarms, visiting hours, pain management, procedures, bathroom and other care routines, personal items, smoking policy, room service/diet, and visiting hours. Information on how to activate the Rapid Response Team has been discussed. Patient/Family are encouraged to report perceived risks to care and to ask questions if they do not understand what they are told or what they should do.
[2023-08-17 21:21] LABS: Basophils Percent Auto 0.3 % (0.2-1.2); Eosinophils Percent Auto 0.3 % (0-4.4); Hematocrit 39.6 % (37.0-47.0); Hemoglobin 12.7 g/dL (12.0-15.0); Immature Granulocyte Absolute 0.07 K/mm3 (0.00-0.031); Immature Granulocyte Percent A 0.6 % (0-0.5); Lymphocytes Absolute Auto 0.85 K/mm3 (0.9-3.2); Lymphocytes Percent Auto 7.2 % (18.3-44.2); Mean Corpuscular HGB Conc 32.1 g/dl (32-36); Mean Corpuscular Hemoglobin 31.8 pg (26-34); Mean Corpuscular Volume 99.2 fl (80-100); Mean Platelet Volume 10.2 fl (7.4-10.4); Monocytes Percent Auto 8.5 % (2.6-8.5); Neutrophils Absolute Auto 9.7 K/mm3 (1.3-6.7); Neutrophils Percent Auto 83.1 % (45.5-73.1); Platelet Count Result 239 k/mm3 (150-375); Red Blood Count 3.99 M/mm3 (4.2-5.4); Red Cell Distribution Width 12.9 % (11.5-14.5); White Blood Count 11.7 K/mm3 (4.5-10.0)
[2023-08-17 21:36] LABS: Anion Gap 10 mmol/L (8-16); Blood Urea Nitrogen 27 mg/dL (7-17); Calcium 9.1 mg/dL (8.4-10.2); Carbon Dioxide 21 mmol/L (22-30); Chloride 106 mmol/L (98-107); Estimated CRCL calculation 38 ml/min; Estimated Glomerular Filt Rate 60; Glucose 137 mg/dL (65-110); Potassium 3.6 mmol/L (3.4-5.0); Sodium 137 mmol/L (137-145)
[2023-08-17] MEDS: MELATONIN 5 MG TABLET PO (22:08)
[2023-08-17] MEDS: CARBIDOPA/LEVODOPA 25/100 MG TABLET 1 TABLET PO (22:08)
[2023-08-17] MEDS: traMADol HCL (*CRX) 25 MG TABLET PO (22:08)
[2023-08-17 22:20] LABS: Thyroid Stimulating Hormone Reflex 0.875 uIU/mL (0.465-4.68)
[2023-08-18] VITALS (15 sets, daily range): BP systolic 111–150; BP diastolic 47–101; PULSE 83–103; RESP 16–18; TEMP 36.3–36.6; O2SAT 96–99
[2023-08-18] MEDS: traMADol HCL (*CRX) 25 MG TABLET PO (05:04)
[2023-08-18] MEDS: buPROPion HCL XL (24 HR) 150 MG TABCR 300 MG PO (09:11)
[2023-08-18] MEDS: CARBIDOPA/LEVODOPA 25/100 MG TABLET 1 TABLET PO ×2 (09:11→20:30)
[2023-08-18] MEDS: MULTIVITAMINS THERAPEUTIC TAB (*BKC) 1 TABLET PO (09:11)
[2023-08-18] MEDS: ROSUVASTATIN 10 MG TABLET PO (09:12)
--- NOTE | 2023-08-18 09:13 | PM.CNOR ---
Assessment and Plan Assessment and plan (1) Anterior shoulder dislocation: Code(s): S43.016A - Anterior dislocation of unspecified humerus, initial encounter Status: Acute Assessment and Plan: Patient is status post dislocation left shoulder. This was reduced in the emergency room she is placed in a splint. Of note is the fact she has a fracture of the greater tuberosity. With neurologically she appears to be grossly intact. She is comfortable in the sling. I would like see her back in 2 to 3 weeks for follow-up and see how she is progressing. (2) Fracture of humerus, left, closed: Code(s): S42.302A - Unspecified fracture of shaft of humerus, left arm, initial encounter for closed fracture Status: Acute (3) Hip pain, left: Code(s): M25.552 - Pain in left hip Status: Acute Assessment and Plan: Patient has a contusion to her left hip. She has pain to palpation manipulation with an pain with activity. X-rays did not show an obvious fracture. My impression patient has a contusion to her hip. We will treat the symptomatic lately. This should resolve over the next several weeks. If he gets worse or changes made repeat the x-rays. Follow-up in the office in 1 to 2 weeks. History of Present Illness HPI Consult date: 08/18/23 Chief complaint: Frquent Falls/Shoulder Dislocation/Fracture Narrative: Patient presents after falling she suffered a dislocation of the left shoulder and a contusion of the left hip. The shoulder was reduced noted to have a fracture of the greater tuberosity after reduction. [facility] Past Medical History Medical History (Updated 08/18/23 @ 09:14 by Eitan Lerma MD) Breast cancer Gastro-esophageal reflux disease without esophagitis Hypertension Parkinson's Disease Thyroid nodule Surgical History Surgical History (Updated 08/17/23 @ 21:43 by Stephany Gomez PA-C) History of arthroplasty of right knee History of arthroscopic knee surgery History of bladder suspension procedure History of breast biopsy History of dilation and curettage History of hysterectomy Family History Family History Sibling Family history of lung cancer, Onset Age: 61 Patient's sister is Patient's sister is in good health Family history of malignant neoplasm of ovary Depression Hypertension Mother Family history of lymphoma, Onset Age: 91 Father Patient's father is Hypertension Heart disease Social History Social History (Updated 08/17/23 @ 21:43 by Stephany Gomez PA-C) Social History: Surrogate medical decision maker: Divina Easton, daughter. Code status: Full code. Smoking status: Never smoker Second hand tobacco smoke exposure: No Alcohol intake: never Substance use: never Lack of Transportation: No Lack of Food: Never True Current Housing: I Have Housing Concerned About Future Housing: No Difficulty Paying Gas/Electric Bills: No Difficulty Paying for Meds: No Currently Unemployed: No Education: High School Diploma/GED Difficulty w/ Childcare or Family Care: No Spiritual care concerns: No Meds Home Medications and Allergies Home Medications Medication Instructions Recorded Confirmed Type melatonin 5 mg capsule 5 mg PO .hs 10/16/19 08/17/23 History multivitamin (Multiple Vitamins 1 tablet PO DAILY 10/16/19 08/17/23 History tablet) bupropion HCl 300 mg 24 hr tablet, 300 mg PO DAILY 10/25/22 08/17/23 History extended release carbidopa 25 mg-levodopa 100 mg 0.5 tablet PO BID 10/25/22 08/17/23 History tablet escitalopram oxalate 20 mg tablet 20 mg PO HS 10/25/22 08/17/23 History rosuvastatin 10 mg tablet 10 mg PO DAILY 10/25/22 08/17/23 History carbidopa 25 mg-levodopa 100 mg 1 tablet PO BID 08/17/23 08/17/23 History tablet Allergies Allergy/AdvReac Type Severity Reaction Status Date /
[2023-08-18] MEDS: HYDROcodone/acetaminophen (*CRX) 7.5-325 MG TABLET 1 TAB PO (11:59)
[2023-08-18] MEDS: CARBIDOPA/LEVODOPA 12.5/50 MG TABLET 1 TABLET PO ×2 (12:40→17:00)
--- NOTE | 2023-08-18 13:38 | PM.IMPN ---
Progress Note: A&P Assessment and Plan (1) Frequent falls: Code(s): R29.6 - Repeated falls Status: Acute Assessment and Plan: In setting of Parkinsonian Gait abnormality Increased falls as of recent with four in the past week alone resulting in the most recent injury. PT and OT evaluation Care Coordination consulted as pt would like to go to rehab at discharge. Fall risk precautions (2) Anterior shoulder dislocation: Qualifiers: Encounter type: initial encounter Laterality: left Qualified Code(s): S43.015A - Anterior dislocation of left humerus, initial encounter Code(s): S43.016A - Anterior dislocation of unspecified humerus, initial encounter Status: Acute Assessment and Plan: Reduced appropriately in ER Pt. has been evaluated by Dr. Lerma, Orthopedics. See recommendations. Left arm held in sling and swath. PRN pain meds (3) Nondisplaced fracture of glenoid cavity of right scapula: Qualifiers: Encounter type: initial encounter Fracture type: closed Qualified Code(s): S42.144A - Nondisplaced fracture of glenoid cavity of scapula, right shoulder, initial encounter for closed fracture Code(s): S42.144A - Nondisplaced fracture of glenoid cavity of scapula, right shoulder, initial encounter for closed fracture Status: Acute Assessment and Plan: Secondary to fall See problem #2 (4) Fracture of humerus, left, closed: Qualifiers: Encounter type: initial encounter Humerus Location: proximal Fracture morphology: unspecified fracture morphology Qualified Code(s): S42.202A - Unspecified fracture of upper end of left humerus, initial encounter for closed fracture Code(s): S42.302A - Unspecified fracture of shaft of humerus, left arm, initial encounter for closed fracture Status: Acute Assessment and Plan: Secondary to fall See problem #2 Now higher risk for DVT in affected extremity. Lovenox started (5) Unstable gait: Code(s): R26.81 - Unsteadiness on feet Status: Acute Assessment and Plan: Secondary to Parkinsonian gait Fall precautions PT and OT ordered (6) Parkinson's Disease: Qualifiers: Dyskinesia presence: unspecified whether dyskinesia Fluctuating manifestations: without fluctuating manifestations Qualified Code(s): G20.A1 - Parkinson's disease without dyskinesia, without mention of fluctuations Code(s): G20 - Parkinson's disease Status: Acute Assessment and Plan: Continue Sinemet Fall precautions Time Spent With Patient Time with patient: 15 - 25 minutes Subjective Date/time seen: 08/18/23 1100 Interval history: This pt was examined at the bedside today in interval assessment after she was admitted to the hospital yesterday after sustaining a fall and injury to her left arm and left hip. She had reduction of her left arm and was evaluated by Orthopedics who recommends conservative management with keeping in a sling and immobilized without any surgical intervention needed at this time. She has Parkinson's and notes she has been falling a lot lately, noting four times in this past week alone. Family and pt would like to go to a rehab facility in [place] if possible at discharge. Care coordination has been consulted for discharge planning and we are awaiting PT and OT evaluations. Pt. has continued pain in the shoulder with any attempt to move her upper body. The Tramadol was not treating her pain effectively enough, so she was given Cameron instead. No other new symptoms to today and no other complaints. She has no paresthesias. Review of Systems Review of Systems: All systems reviewed & are unremarkable except as noted in HPI and below Exam Narrative: General: A well-developed, nontoxic-appearing female sitting up in bed in no acute distress. Weight: 67.5 kg. BMI: 25.5. HEENT: Healing bruises on the left forehead and left temp
[2023-08-18] MEDS: ESCITALOPRAM OXALATE 10 MG TABLET 20 MG PO (20:29)
[2023-08-18] MEDS: MELATONIN 5 MG TABLET PO (20:30)
[2023-08-19] VITALS (8 sets, daily range): BP systolic 116–151; BP diastolic 71–87; PULSE 87–98; RESP 18; TEMP 36.4–36.9; O2SAT 97–100
--- NOTE | 2023-08-19 07:19 | PM.PNORT ---
Progress Note: A&P Assessment and Plan (1) Hip pain, left: Code(s): M25.552 - Pain in left hip Status: Acute Assessment and Plan: Patient's hip pain persist. She is tender laterally has pain to palpation manipulation she is unable to bear weight on her hip at this time. Will get an attempt to ambulate her least transfer her today. If the pain does get better over the next several days may have to consider MRI scan. (2) Fracture of humerus, left, closed: Qualifiers: Encounter type: initial encounter Humerus Location: proximal Fracture morphology: unspecified fracture morphology Qualified Code(s): S42.202A - Unspecified fracture of upper end of left humerus, initial encounter for closed fracture Code(s): S42.302A - Unspecified fracture of shaft of humerus, left arm, initial encounter for closed fracture Status: Acute Assessment and Plan: The patient is a dislocation that is left shoulder the shoulder has been relocated she is relatively comfortable in the sling today. Continue immobilization. Subjective Subjective Date/Time Seen: 08/19/23 07:19 Principal diagnosis: Left SHOULDER Dislocation. Left Hip Contusion Interval history: Patient is status post fall dislocation left shoulder as well as contusion to her left hip. She states she falls fairly often multiple times in the past month. Today the pain is little bit better. Exam Narrative: Patient is comfortable in splint and sling she wiggles her fingers for hip pain she has tenderness laterally and pain to palpation. Objective Data Vital Signs Vital Signs: Vital Signs - 24 hr 08/18/23 09:07 08/18/23 08:00 08/18/23 12:36 Temperature Pulse Rate 94 103 H Respiratory Rate Blood Pressure Pulse Oximetry Oxygen Delivery Room Air 08/18/23 15:33 08/18/23 14:00 08/18/23 16:00 Temperature 97.9 F Pulse Rate 93 91 Respiratory Rate 17 Blood Pressure 143/86 H Pulse Oximetry 96 Oxygen Delivery Room Air 08/18/23 21:37 08/18/23 20:30 08/18/23 20:00 Temperature 98 F Pulse Rate 88 85 Respiratory Rate 18 Blood Pressure 142/66 H 142/66 H Pulse Oximetry 97 Oxygen Delivery 08/18/23 20:35 08/18/23 21:42 08/19/23 00:00 Temperature Pulse Rate 90 Respiratory Rate Blood Pressure 127/101 H 111/47 L Pulse Oximetry Oxygen Delivery 08/19/23 04:00 08/19/23 06:00 Temperature 97.7 F Pulse Rate 91 94 Respiratory Rate 18 Blood Pressure 151/86 H Pulse Oximetry 97 Oxygen Delivery Intake/Output Intake/Output: Intake & Output 08/16/23 08/17/23 08/18/23 08/19/23 23:59 23:59 23:59 23:59 Intake Total 990 240 Output Total 750 240 Balance 240 0 Meds/Results Medications: Active Medications Generic Name Dose Route Start Last Admin Trade Name Freq PRN Reason Stop Dose Admin Acetaminophen 650 mg 08/17/23 21:34 Acetaminophen 325 Mg Tablet PO Q6H PRN Mild Pain (1-3) or Fever Hydrocodone Bitart/Acetaminophen 1 tab 08/18/23 09:43 08/18/23 11:59 Hydrocodone/Acetaminophen (*Crx) 7.5-325 Mg Tablet PO 1 tab Q4H PRN Administration Pain Rated 7-10 Bupropion HCl 300 mg 08/18/23 09:00 08/18/23 09:11 Bupropion Hcl Xl (24 Hr) 150 Mg Tabcr PO 300 mg DAILY LEENA Administration Carbidopa/Levodopa 1 tablet 08/18/23 12:00 08/18/23 17:00 Carbidopa/Levodopa 12.5/50 Mg Tablet PO 1 tablet BID@1200,1700 LEENA Administration Carbidopa/Levodopa 1 tablet 08/17/23 21:35 08/18/23 20:30 Carbidopa/Levodopa 25/100 Mg Tablet PO 1 tablet Q12HR LEENA Administration Enoxaparin Sodium 40 mg 08/19/23 09:00 Enoxaparin 40 Mg/0.4 Ml Syringe SUB-Q DAILY LEENA Escitalopram Oxalate 20 mg 08/18/23 21:00 08/18/23 20:29 Escitalopram Oxalate 10 Mg Tablet PO 20 mg HS LEENA Administration Melatonin 5 mg 08/17/23 21:35 08/18/23 20:30 Melatonin 5 Mg Tablet PO 5 mg HS LEENA Administration Multivi
[2023-08-19] MEDS: buPROPion HCL XL (24 HR) 150 MG TABCR 300 MG PO (08:07)
[2023-08-19] MEDS: MULTIVITAMINS THERAPEUTIC TAB (*BKC) 1 TABLET PO (08:08)
[2023-08-19] MEDS: ROSUVASTATIN 10 MG TABLET PO (08:08)
[2023-08-19] MEDS: CARBIDOPA/LEVODOPA 25/100 MG TABLET 1 TABLET PO ×2 (08:08→20:56)
[2023-08-19] MEDS: ENOXAPARIN 40 MG/0.4 ML SYRINGE SUB-Q (08:08)
[2023-08-19 08:20] LABS: Glucose Point of Care 106 mg/dl (65-105)
--- NOTE | 2023-08-19 11:15 | PM.IMPN ---
Progress Note: A&P Assessment and Plan (1) Frequent falls: Code(s): R29.6 - Repeated falls Status: Acute Assessment and Plan: In setting of Parkinsonian Gait abnormality Increased falls as of recent with four in the past week alone resulting in the most recent injury. PT and OT evaluation Care Coordination consulted as pt would like to go to rehab at discharge. Fall risk precautions (2) Anterior shoulder dislocation: Qualifiers: Encounter type: initial encounter Laterality: left Qualified Code(s): S43.015A - Anterior dislocation of left humerus, initial encounter Code(s): S43.016A - Anterior dislocation of unspecified humerus, initial encounter Status: Acute Assessment and Plan: Reduced appropriately in ER Pt. has been evaluated by Dr. Lerma, Orthopedics. See recommendations. Left arm held in sling and swath. PRN pain meds (3) Nondisplaced fracture of glenoid cavity of right scapula: Qualifiers: Encounter type: initial encounter Fracture type: closed Qualified Code(s): S42.144A - Nondisplaced fracture of glenoid cavity of scapula, right shoulder, initial encounter for closed fracture Code(s): S42.144A - Nondisplaced fracture of glenoid cavity of scapula, right shoulder, initial encounter for closed fracture Status: Acute Assessment and Plan: Secondary to fall See problem #2 (4) Fracture of humerus, left, closed: Qualifiers: Encounter type: initial encounter Humerus Location: proximal Fracture morphology: unspecified fracture morphology Qualified Code(s): S42.202A - Unspecified fracture of upper end of left humerus, initial encounter for closed fracture Code(s): S42.302A - Unspecified fracture of shaft of humerus, left arm, initial encounter for closed fracture Status: Acute Assessment and Plan: Secondary to fall See problem #2 Now higher risk for DVT in affected extremity. Lovenox started (5) Unstable gait: Code(s): R26.81 - Unsteadiness on feet Status: Acute Assessment and Plan: Secondary to Parkinsonian gait Fall precautions PT and OT ordered (6) Parkinson's Disease: Qualifiers: Dyskinesia presence: unspecified whether dyskinesia Fluctuating manifestations: without fluctuating manifestations Qualified Code(s): G20.A1 - Parkinson's disease without dyskinesia, without mention of fluctuations Code(s): G20 - Parkinson's disease Status: Acute Assessment and Plan: Continue Sinemet Fall precautions [facility] for acute rehab stay Neurology consulted per request of orthopedics. Patient is well established in [place] with Neurology. May need to arrange outpatient followup if Neurology does not see patient today. Time Spent With Patient Time with patient: 25 - 35 minutes Subjective Date/time seen: 08/19/23 11:15 Interval history: 08/18: Patient is status post fall dislocation left shoulder as well as contusion to her left hip. She states she falls fairly often multiple times in the past month. Today the pain is little bit better. 08/19: Pain is managed. Patient able to stand and transfer though painful. She is up to chair with shoulder immobilizer in place. Attempted to order hip MRI as suggested by Orthopedics however patient has bilateral Deep Brain Stimulators in place for Parkinson's. Neurology consult also requested by Orthopedics. Consult ordered. No Neurology coverage tomorrow. If they are unable to see today, we will suggest follow up outpatient with her primary Neurologist at [facility]. Patient will benefit from intense rehabilitation therapy. [facility] plans to accept patient tomorrow. DC Telemetry. Review of Systems Review of Systems: All systems reviewed & are unremarkable except as noted in HPI and below Exam Narrative: General: A well-de
[2023-08-19] MEDS: CARBIDOPA/LEVODOPA 12.5/50 MG TABLET 1 TABLET PO ×2 (12:41→17:18)
[2023-08-19] MEDS: ACETAMINOPHEN 325 MG TABLET 650 MG PO (17:18)
[2023-08-19] MEDS: HYDROcodone/acetaminophen (*CRX) 7.5-325 MG TABLET 1 TAB PO (20:55)
[2023-08-19] MEDS: ESCITALOPRAM OXALATE 10 MG TABLET 20 MG PO (20:56)
[2023-08-19] MEDS: MELATONIN 5 MG TABLET PO (20:57)
[2023-08-20 04:17] VITALS: BP 142/80; PULSE 85; RESP 18; TEMP 36.6; O2SAT 95
[2023-08-20] MEDS: MULTIVITAMINS THERAPEUTIC TAB (*BKC) 1 TABLET PO (09:24)
[2023-08-20] MEDS: CARBIDOPA/LEVODOPA 25/100 MG TABLET 1 TABLET PO (09:24)
[2023-08-20] MEDS: ROSUVASTATIN 10 MG TABLET PO (09:24)
[2023-08-20] MEDS: buPROPion HCL XL (24 HR) 150 MG TABCR 300 MG PO (09:24)
--- NOTE | 2023-08-20 11:39 | PM.DS ---
DS: Admitting Diagnosis Discharge Date 08/20/2023 Admitting Diagnosis Frequent falls, anterior dislocation, nondisplaced fracture glenoid cavity right scapula fracture of humerus left closed unstable gait, Parkinson's disease DS: Discharge Diagnosis Discharge Diagnosis (1) Frequent falls: Code(s): R29.6 - Repeated falls Status: Acute (2) Anterior shoulder dislocation: Qualifiers: Encounter type: initial encounter Laterality: left Qualified Code(s): S43.015A - Anterior dislocation of left humerus, initial encounter Code(s): S43.016A - Anterior dislocation of unspecified humerus, initial encounter Status: Acute (3) Nondisplaced fracture of glenoid cavity of right scapula: Qualifiers: Encounter type: initial encounter Fracture type: closed Qualified Code(s): S42.144A - Nondisplaced fracture of glenoid cavity of scapula, right shoulder, initial encounter for closed fracture Code(s): S42.144A - Nondisplaced fracture of glenoid cavity of scapula, right shoulder, initial encounter for closed fracture Status: Acute (4) Fracture of humerus, left, closed: Qualifiers: Encounter type: initial encounter Humerus Location: proximal Fracture morphology: unspecified fracture morphology Qualified Code(s): S42.202A - Unspecified fracture of upper end of left humerus, initial encounter for closed fracture Code(s): S42.302A - Unspecified fracture of shaft of humerus, left arm, initial encounter for closed fracture Status: Acute (5) Unstable gait: Code(s): R26.81 - Unsteadiness on feet Status: Acute (6) Parkinson's Disease: Qualifiers: Dyskinesia presence: unspecified whether dyskinesia Fluctuating manifestations: without fluctuating manifestations Qualified Code(s): G20.A1 - Parkinson's disease without dyskinesia, without mention of fluctuations Code(s): G20 - Parkinson's disease Status: Acute DS: Summary Hospital Course Reason for hospitalization: Patient was admitted due to left shoulder dislocation fracture and left hip pain for pain control and therapy placement. Hospital Course: 08/17: This is a very pleasant 78-year-old female with Parkinson's, hypertension, and hyperlipidemia who presented to the emergency department for evaluation of left hip and shoulder pain after a fall. The patient provides the following history. She has an unsteady gait related to her Parkinson's and typically gets around with a walker although at time she uses a wheelchair. It is not necessarily unusual for her to have a fall here and there although she has fallen 4 times in the last couple of days. Today she was getting something out of the refrigerator and when she turned around she lost her balance, possibly on a wet spot on the floor, and she fell onto her left side with immediate pain in the left shoulder and left hip. She denies head trauma and loss of consciousness in the fall however she does have bruising on the left side of her head on exam which she states was from a fall the other day. With further questioning she does admit that at times she does not remember how or why she fell although she does not think she has lost consciousness. Imaging today showed an anterior left glenohumeral and a fracture of the greater trochanter of the proximal left humerus. This was reduced and placed in a sling. Other imaging for without acute findings. She is being admitted in this setting for pain management, orthopedic consultation, and PT/OT evaluation as she may very well need rehab prior to returning home. She denies syncope, near syncope, lightheadedness, dizziness, chest pain, shortness of breath, neck pain, chest pain, abdominal pain, nausea, vomiting, and sensation changes distal to the fracture. 08/18:? Patient is status post fall dislocation left shoulder as well as contusion to her left hip.? She states she falls fairly often multiple times in the past
[2023-08-20] MEDS: CARBIDOPA/LEVODOPA 12.5/50 MG TABLET 1 TABLET PO ×2 (12:25→16:04)
[2023-08-20] MEDS: HYDROcodone/acetaminophen (*CRX) 7.5-325 MG TABLET 1 TAB PO (16:04)
== END 2023-08-20 18:22 | DRG 563 ==
LOC: ANHED 16:39 → ANH3MEDSUR 17:45 → ANH3MED 19:25
PROVIDERS: Nurse Practitioner Adult Health; Physician Assistant; Admitting Provider Internal Medicine; Emergency Provider Emergency Medicine; PCP Internal Medicine; Visit Provider Nurse Practitioner
DX: S43.015A Anterior dislocation of left humerus, initial encounter (principal); S70.02XA Contusion of left hip, initial encounter; W19.XXXA Unspecified fall, initial encounter; E78.5 Hyperlipidemia, unspecified; G20.A1 Parkinson's disease without dyskinesia, without mention of fluctuations; I10 Essential (primary) hypertension; K21.9 Gastro-esophageal reflux disease without esophagitis; R26.9 Unspecified abnormalities of gait and mobility; Z96.82 Presence of neurostimulator; Z85.3 Personal history of malignant neoplasm of breast; Z96.651 Presence of right artificial knee joint; Z90.710 Acquired absence of both cervix and uterus
CPT/HCPCS: 23650; 36415; 70450; 72125; 73030; 73060; 73502; 80048; 82948; 83735; 84443; 85025; 97110; 97116; 97161; 97165; 97535; 99285; A9270; G0378; J1650; J2704; J3010; J7030

== ENCOUNTER 2023-09-19 13:07 | Emergency (ER) | payer MEDICARE, SELFPAY ==
[2023-09-19] VITALS (12 sets, daily range): BP systolic 127–156; BP diastolic 63–80; PULSE 84–90; RESP 14–30; TEMP 36.1–36.4; O2SAT 95–100
--- NOTE | ~2023-09-19 | XR_ITS ---
EXAMINATION: XR chest 2V Exam Date/Time: 09/19/2023 15:35 PUBLIC HEALTH REPRESENTATIVE HISTORY: syncope Comparison: 08/08/2022. RESULT: Lines, tubes, and devices: Bilateral stimulator packs with leads extending cephalad into the neck. Lungs and pleura: Clear. Stable right hemidiaphragm elevation Cardiomediastinal silhouette: Stable. Other: No acute upper abdominal finding. Moderate anterior wedge deformity, likely L1, new since mike or study IMPRESSION: No acute cardiopulmonary process. Age-indeterminate moderate anterior wedge compression fracture, likely of L1. Correlate with pain/ten derness Reviewed, dictated and finalized at location K. [facility] HEALTH REPRESENTATIVE IMPRESSION: No acute cardiopulmonary process. Age-indeterminate moderate anterior wedge compression fracture, likely of L1. C orrelate with pain/tenderness
--- NOTE | ~2023-09-19 | XR_ITS ---
EXAMINATION: XR hip RT 2V w AP pelvis DATE: 09/19/2023 15:47 INDICATION: Right hip pain. TECHNIQUE: An anteroposterior view of the pelvis and 2 views of right hip were obtained. COMPARISON: Pelvis radiograph 08/17/2023 FINDINGS: There is lumbar dextroscoliosis and severe spondylosis. No fracture. Osteitis pubis is note d. There is mild osteoarthritis of the hips. IMPRESSION: 1. Mild osteoarthritis of the hips. Reviewed, dictated and finalized at location A. [employer]
--- NOTE | 2023-09-19 14:40 | PC.NURSE ---
EKG performed by techs, unable to get a clear rhythm. Dr. Cali notified that pt has neurotransmitter device and will re-attempt.
--- NOTE | 2023-09-19 14:42 | ECG_ITS ---
Measurements Intervals [place] Rate: 84 P: [place]: 0 QRS: 174 QRSD: 97 T: -2 QT: 387 QTc: 460 Interpretive Statements LIKELY SINUS RHYTHM, HOWEVER, SIGNIFICANT BASELINE ARTIFACT LIMITS INTERPREATION NO PREVIOUS ECG AVAILABLE FOR COMPARISON Electronically Signed On 09-19-2023 16:44:55 [employer] by Mickey Aj M.D.
[2023-09-19 15:16] LABS: Basophils Percent Auto 0.3 % (0.2-1.2); Eosinophils Absolute Auto 0.1 K/mm3 (0-0.3); Eosinophils Percent Auto 1.7 % (0-4.4); Hematocrit 39.9 % (37.0-47.0); Hemoglobin 12.9 g/dL (12.0-15.0); Immature Granulocyte Absolute 0.03 K/mm3 (0.00-0.031); Immature Granulocyte Percent A 0.5 % (0-0.5); Lymphocytes Absolute Auto 0.93 K/mm3 (0.9-3.2); Lymphocytes Percent Auto 14.8 % (18.3-44.2); Mean Corpuscular HGB Conc 32.3 g/dl (32-36); Mean Corpuscular Hemoglobin 31.4 pg (26-34); Mean Corpuscular Volume 97.1 fl (80-100); Mean Platelet Volume 10.7 fl (7.4-10.4); Monocytes Absolute Auto 0.8 K/mm3 (0.1-0.6); Monocytes Percent Auto 12.9 % (2.6-8.5); Neutrophils Absolute Auto 4.4 K/mm3 (1.3-6.7); Neutrophils Percent Auto 69.8 % (45.5-73.1); Platelet Count Result 270 k/mm3 (150-375); Red Blood Count 4.11 M/mm3 (4.2-5.4); Red Cell Distribution Width 13.2 % (11.5-14.5); White Blood Count 6.3 K/mm3 (4.5-10.0)
[2023-09-19 15:21] LABS: Alanine Aminotransferase 15 U/L (6-35); Albumin Level 3.9 g/dL (3.5-5.1); Alkaline Phosphatase 107 U/L (38-126); Anion Gap 6 mmol/L (8-16); Aspartate Amino Transferase 90 U/L (14-36); Blood Urea Nitrogen 24 mg/dL (7-17); Calcium 8.7 mg/dL (8.4-10.2); Carbon Dioxide 27 mmol/L (22-30); Chloride 103 mmol/L (98-107); Estimated CRCL calculation 48 ml/min; Estimated Glomerular Filt Rate > 60; Glucose 97 mg/dL (65-110); Potassium 3.6 mmol/L (3.4-5.0); Sodium 136 mmol/L (137-145)
[2023-09-19] MEDS: SODIUM CHLORIDE 0.9% IV 1,000 ML 999 ML IV CONT (15:54)
[2023-09-19 16:24] LABS: Appearance Urine Clear (Clear); Bacteria Urine Rare /hpf; Bilirubin Urine Negative (Negative); Blood Urine Negative (Negative); Color Urine Dark Yellow (Yellow); Glucose Urine UA Negative (Negative); Ketones Urine 1+ mg/dL (Negative); Leukocyte Esterase Ur Negative LEU/UL (Negative); Nitrate Urine Negative (Negative); Non Pathogenic Casts 0-2; Protein Urine Trace mg/dL (Negative); RBC Urine 0-2 /hpf (0-2); Specific Grav Ur 1.031 (1.001-1.035); Squamous Epithelial Cell Urine None seen /hpf (Few); Urobilinogen Urine 0.2 mg/dL (<2.0); WBC Urine 0-5 /hpf; pH Urine 5.5 (5.0-9.0)
[2023-09-19 16:28] LABS: Add Urine Microscopic? YES
--- NOTE | 2023-09-19 16:43 | ED.GENADULT ---
HPI - General Adult General Chief complaint: Altered Mental Status Stated complaint: ams Time Seen by Provider: 09/19/23 14:42 History of Present Illness HPI narrative: Patient is an 78-year-old female who presents ER with possible recurrent syncope. Patient has been nodding off at her facility. Patient is awake alert orient x4 at this time. She reports mild fatigue. Recently diagnosed with COVID-19. She has had poor appetite recently. Patient does only often. She is a full assist at her facility and uses a wheelchair. Patient without any injury today but reports that she had an x-ray of her right hip because of a fall in the last couple days. No shortening or external rotation. Denies CP/SOA/N/V/Diarrhea Related Data Home Medications Medication Instructions Recorded Confirmed bupropion HCl 300 mg 24 hr tablet, 300 mg PO DAILY 10/25/22 08/20/23 extended release escitalopram oxalate 20 mg tablet 20 mg PO HS 10/25/22 08/20/23 rosuvastatin 10 mg tablet 10 mg PO DAILY 10/25/22 08/20/23 melatonin 5 mg capsule 6 mg PO HS 08/20/23 08/20/23 Allergies Allergy/AdvReac Type Severity Reaction Status Date / Time celecoxib Allergy Mild Itching Verified 09/06/23 08:06 citalopram Allergy Mild Rash Verified 09/06/23 08:06 sertraline Allergy Mild made Verified 09/06/23 08:06 tremors worse primidone AdvReac Severe severe Verified 09/06/23 08:06 dizzy, gait unsteadiness Review of Systems Review of Systems: All systems reviewed & are unremarkable except as noted in HPI and below Constitutional: Constitutional: Denies chills, Reports fatigue and Denies fever(s) ENT: Reports system reviewed and no additional complaints, except as documented Cardiovascular: Cardiovascular: Reports no additional cardiovascular complaints Respiratory: Respiratory: Reports no additional respiratory complaints Genitourinary: Genitourinary: Reports no additional female genitourinary complaints Musculoskeletal: Musculoskeletal: Reports no additional musculoskeletal complaints Neurologic: Reports syncope (?), Denies focal weakness and Denies numbness PMFSH Past Medical History Medical History Breast cancer Gastro-esophageal reflux disease without esophagitis Hypertension Parkinson's Disease Thyroid nodule Surgical History Surgical History History of arthroplasty of right knee History of arthroscopic knee surgery History of bladder suspension procedure History of breast biopsy History of dilation and curettage History of hysterectomy Family History Family History Sibling Family history of lung cancer, Onset Age: 61 Patient's sister is Patient's sister is in good health Family history of malignant neoplasm of ovary Depression Hypertension Mother Family history of lymphoma, Onset Age: 91 Father Patient's father is Hypertension Heart disease Social History Social History Social History: Surrogate medical decision maker: Divina Easton, daughter. Code status: Full code. Smoking status: Never smoker Second hand tobacco smoke exposure: No Alcohol intake: never Substance use: never Lack of Transportation: No Lack of Food: Never True Current Housing: I Have Housing Concerned About Future Housing: No Difficulty Paying Gas/Electric Bills: No Difficulty Paying for Meds: No Currently Unemployed: No Education: High School Diploma/GED Difficulty w/ Childcare or Family Care: No Spiritual care concerns: No Exam Narrative: GENERAL: Well-appearing, well-nourished, and in no acute distress. HEAD: Normocephalic, atraumatic. EYES: PERRL and EOMI. ENT: Dry mucous membranes. CHEST: Clear to auscu
[2023-09-19 17:17] LABS: INR 1.1; Partial Thromboplastin Time 31.4 SECONDS (22.3-36.8); Prothrombin Time 14.5 Seconds (11.1-14.7)
== END 2023-09-19 18:18 ==
PROVIDERS: Emergency Provider Emergency Medicine; PCP Internal Medicine
DX: E86.0 Dehydration (principal); G20.A1 Parkinson's disease without dyskinesia, without mention of fluctuations; I10 Essential (primary) hypertension; K21.9 Gastro-esophageal reflux disease without esophagitis; Z85.3 Personal history of malignant neoplasm of breast; Z86.16 Personal history of COVID-19; Z96.651 Presence of right artificial knee joint; M16.0 Bilateral primary osteoarthritis of hip; R93.7 Abnormal findings on diagnostic imaging of other parts of musculoskeletal system
CPT/HCPCS: 36415; 71046; 73502; 80053; 81001; 85025; 85055; 85610; 85730; 93005; 96360; 99284; J7030